=== PATIENT | female | born 1985 | race Caucasian/White ===

== ENCOUNTER 2016-04-20 16:35 | Emergency (ER) | payer OTHER ==
[2016-04-20 16:54] VITALS: BP 114/79
[2016-04-20] MEDS ORDERED: Tetan/Diph/Pertus SYR(Tdap)* 0.5 ML SYR(BOOSTRIX) use SYR IM ONE (17:04)
--- NOTE | 2016-04-20 17:04 | UC ---
Knee Pain HPI - HPI Summary HPI Summary: fell on side walk one hour prior to arrival pain and abrasions both knee--hurts to wb on right leg - History of Current Complaint Chief Complaint: UCLowerExtremity Stated Complaint: KNEES INJURY FROM FALL Time Seen by Provider: 04/20/16 16:55 Hx Obtained From: Patient Hx Last Menstrual Period: 2 WEEKS AGO ?: No Onset/Duration: Sudden Onset, Lasting Hours - 1, Still Present Severity Initially: Moderate Severity Currently: Moderate Location Of Injury: both knees R>L Pain Intensity: 6 Pain Scale Used: 0-10 Numeric Character: Aching, Stiffness Aggravating Factor(s): Movement, Weight Bearing Associated Signs And Symptoms: Positive: Bruising - abrasions Able to Bear Weight: Yes - hurts to WB on right leg - Allergies/Home Medications Allergies/Adverse Reactions: Allergies Allergy/AdvReac Type Severity Reaction Status Date / Time Amoxicillin Allergy Severe Hives Verified 04/20/16 16:54 PMH/Surg Hx/FS Hx/Imm Hx Previously Healthy: No Cardiovascular History Of: Denies: Pacemaker/ICD Neurological History Of: Reports: Migraine Psychological History Of: Reports: Depression - Surgical History Surgical History: Yes Surgery Procedure, Year, and Place: 2 c-sections - Family History Known Family History: Positive: Other - father from [place], Mother from [place] - Social History Occupation: Employed Full-time Lives: With Family Alcohol Use: None Alcohol Amount: RECOVERING ALCOHOLIC Substance Use Type: None Substance Use Comment - Amount & Last Used: RECOVERING DRUG ADDICT Smoking Status (MU): Current Every Day Smoker Type: Cigarettes Amount Used/How Often: 1 PACK Q2 WEEKS - Immunization History Most Recent Influenza Vaccination: 2012 Most Recent Tetanus Shot: >10 yrs Most Recent Pneumonia Vaccination: no Hx Tetanus, Diphtheria Vaccination: No - unsure of last Vaccination Up to Date: No Review of Systems Constitutional: Negative Skin: Bruising - both knees Eyes: Negative ENT: Negative Respiratory: Negative Cardiovascular: Negative Gastrointestinal: Negative Genitourinary: Negative Motor: Decreased ROM - right knee Neurovascular: Negative Musculoskeletal: Arthralgia - both knees Neurological: Negative Psychological: Negative All Other Systems Reviewed And Are Negative: Yes Physical Exam Triage Information Reviewed: Yes Appearance: Well-Appearing, Pain Distress - mild, Obese Vital Signs: Initial Vital Signs Temp 97.3 F 04/20/16 16:50 Pulse 86 04/20/16 16:50 Resp 18 04/20/16 16:50 BP 114/79 04/20/16 16:50 Pulse Ox 99 04/20/16 16:50 Vital Signs Reviewed: Yes Eye Exam: Normal ENT Exam: Normal ENT: Positive: Normal ENT inspection, Hearing grossly normal. Negative: Nasal congestion, Nasal drainage, Trismus, Muffled/hoarse voice Neck exam: Normal Neck: Positive: Supple, Nontender Respiratory Exam: Normal Respiratory: Positive: Chest non-tender, Lungs clear, Normal breath sounds, No respiratory distress, No accessory muscle use Cardiovascular Exam: Normal Cardiovascular: Positive: RRR, Pulses Normal, Brisk Capillary Refill Musculoskeletal Exam: Other Musculoskeletal: Positive: ROM Limited @ - right knee, Edema @ - both knees R>L Neurological Exam: Normal Neurological: Positive: Alert, Muscle Tone Normal Psychological Exam: Normal Skin: Positive: Other - abrasions on both knee R>L Diagnostics - Laboratory Diagnostic Studies Completed/Ordered: Joint space narrowing noacute fracture Knee Pain Course/Dx - Course Course Of Treatment: up date tetnus, ibuprofen jaz wrap wound care, rice, follow with pcp - Differential Dx/Diagnosis Differential Diagnosis/HQI/PQRI: Contusion, Internal Derangement Of Knee, Infection, Sprain Provider Diagnoses: Bilateral knee contusion and abrasion Discharge - Discharge Plan Condition: Stable Disposition: HOME Patient Education Materials: Ibuprofen (By mouth), Contusion in Adults (ED), Abrasion (ED), Knee Pain (ED), RICE Therapy (ED) Forms: *Work Release Referrals: Chacorta Betancourt MD [Medical Doctor] - 3 Days No Primary Care Phys,NOPCP [Primary Care Provider] -
[2016-04-20] MEDS ORDERED: Ibuprofen TAB* 600 MG PO ONE (17:05)
--- NOTE | 2016-04-20 17:42 | RAD ---
INDICATION: Bilateral knee pain COMPARISON: Left knee October 04, 2014 TECHNIQUE: AP, lateral, tunnel, and sunrise views of each knee were obtained. FINDINGS: There is minor, bilateral, medial joint space narrowing bilaterally. The bony structures, joint spaces, and soft tissues otherwise normal.. IMPRESSION: MINOR, BILATERAL, MEDIAL JOINT SPACE NARROWING.
== END 2016-04-20 17:57 | disposition home or self-care (01) ==
LOC: UCEAST 16:35
DX: S80.212A Abrasion, left knee, initial encounter (principal); S80.211A Abrasion, right knee, initial encounter; W18.30XA Fall on same level, unspecified, initial encounter; Y93.9 Activity, unspecified; Y92.480 Sidewalk as the place of occurrence of the external cause; Y99.9 Unspecified external cause status; F17.210 Nicotine dependence, cigarettes, uncomplicated
CPT/HCPCS: 90715; 99212; A9270-GY; G0463

== ENCOUNTER 2016-05-08 00:05 | Emergency (ER) | payer OTHER ==
[2016-05-08 01:06] VITALS: BP 117/83
--- NOTE | 2016-05-08 05:01 | ED ---
HPI Chest Pain - HPI Summary HPI Summary: Patient presents for evaluation of 2 days of L anterior, unclear onset, atraumatic chest wall pain. No allev factors. Aggrav by palpation. Denies shortness of breath or systemic symptoms. - History of Current Complaint Chief Complaint: EDChestPainROMI Time Seen by Provider: 05/08/16 00:55 Hx Obtained From: Patient Timing: Intermittent, Lasting Seconds Initial Severity: Mild Current Severity: Mild Pain Intensity: 8 - Allergy/Home Medications Allergies/Adverse Reactions: Allergies Allergy/AdvReac Type Severity Reaction Status Date / Time Amoxicillin Allergy Severe Hives Verified 04/20/16 16:54 PMH/Surg Hx/FS Hx/Imm Hx Previously Healthy: Yes Cardiovascular History: Denies: Hx Pacemaker/ICD Sensory History: Reports: Hx Contacts or Glasses Denies: Hx Hearing Aid Opthamlomology History: Reports: Hx Contacts or Glasses Neurological History: Reports: Hx Migraine Psychiatric History: Reports: Hx Depression Denies: Hx Panic Disorder - Surgical History Surgery Procedure, Year, and Place: 2 c-sections Hx Anesthesia Reactions: No Infectious Disease History: No Infectious Disease History: Denies: History Other Infectious Disease, Traveled Outside the [place] in Last 30 Days - Family History Known Family History: Positive: Other - father from [place], Mother from [place] - Social History Alcohol Use: None Alcohol Amount: RECOVERING ALCOHOLIC Substance Use Type: Reports: None Substance Use Comment - Amount & Last Used: RECOVERING DRUG ADDICT Hx Tobacco Use: Yes Smoking Status (MU): Current Every Day Smoker Type: Cigarettes Amount Used/How Often: 1 PACK Q2 WEEKS Review of Systems All Other Systems Reviewed And Are Negative: Yes Physical Exam Triage Information Reviewed: Yes Vital Signs On Initial Exam: Initial Vitals Temp Pulse Resp BP Pulse Ox 97.5 F 70 20 156/89 100 05/08/16 00:07 05/08/16 00:07 05/08/16 00:07 05/08/16 00:07 05/08/16 00:07 Vital Signs Reviewed: Yes Appearance: Positive: Well-Appearing, No Pain Distress, Well-Nourished Skin: Positive: Warm, Skin Color Reflects Adequate Perfusion, Dry Respiratory/Lung Sounds: Positive: Clear to Auscultation, Breath Sounds Present Cardiovascular: Positive: Normal, RRR, Pulses are Symmetrical in both Upper and Lower Extremities Abdomen Description: Positive: Nontender, No Organomegaly, Soft Musculoskeletal: Positive: Normal, Strength/ROM Intact Neurological: Positive: Normal, Sensory/Motor Intact, Alert, Oriented to Person Place, Time, CN Intact II-III Diagnostics - Vital Signs Vital Signs Temp Pulse Resp BP Pulse Ox 05/08/16 01:00 60 21 117/83 99 05/08/16 00:50 23 05/08/16 00:49 88/65 05/08/16 00:07 97.5 F 70 20 156/89 100 - Laboratory Lab Statement: Any lab studies that have been ordered have been reviewed, and results considered in the medical decision making process. Chest Pain Course/Dx - Chest Pain Differential Diagnosis/HQI/PQRI: ACS, Chest Wall, Pulmonary Embolism, Other: - Primary concern for MSk chest wall pain. EKG unremarkable. Prolonged duration. Low wells, PERC qualifier. - Diagnoses Provider Diagnoses: Chest wall pain Discharge - Discharge Plan Condition: Stable Disposition: HOME Patient Education Materials: Chest Pain (ED) Referrals: No Primary Care Phys,NOPCP [Primary Care Provider] - If Needed
--- NOTE | 2016-05-08 07:50 | RAD ---
INDICATION: RIGHT side chest pain for 3 hours. Shortness of breath. Former tobacco use. COMPARISON: January 13, 2016 TECHNIQUE: Dual energy PA and routine lateral views of the chest were obtained. REPORT: Clear lungs and pleural spaces. Negative for pneumothorax. The heart, pulmonary vasculature, and mediastinal contours are unremarkable. Unremarkable osseous structures and soft tissue contours. IMPRESSION: No evidence for acute intrathoracic disease.
== END 2016-05-08 01:45 | disposition home or self-care (01) ==
LOC: ED 00:05
DX: R07.89 Other chest pain (principal); F17.210 Nicotine dependence, cigarettes, uncomplicated; Z88.0 Allergy status to penicillin; Z82.49 Family history of ischemic heart disease and other diseases of the circulatory system
CPT/HCPCS: 71020; 93005; 99282

== ENCOUNTER 2016-05-14 21:37 | Emergency (ER) | payer OTHER ==
[2016-05-14 21:54] VITALS: BP 124/61
[2016-05-14] MEDS ORDERED: Diazepam SYRINGE* 5 MG/ML SYRINGE IV ONE (22:25)
[2016-05-14] MEDS ORDERED: Ketorolac INJ* 30 MG/ML 1 ML VIAL IV PUSH ONE (22:25)
[2016-05-14] MEDS ORDERED: NS 0.9% 1000 ML* 1,000 ML IV ONE (22:26)
[2016-05-15 00:04] LABS: Hematocrit 39 % (35-47); Hemoglobin 13.1 g/dl (12.0-16.0); Mean Corpuscular HGB Conc 33 g/dl (31-36); Mean Corpuscular Hemoglobin 28 pg (27-31); Mean Corpuscular Volume 85 fL (80-97); Mean Platelet Volume 9 um3 (7.4-10.4); Red Blood Count 4.66 10^6/ul (4.0-5.4); Red Cell Distribution Width 13 % (10.5-15); White Blood Count 7.2 10^3/ul (3.5-10.8)
[2016-05-15 00:24] LABS: BUN/Creatinine Ratio 19.7 (8-20); Calcium 9.2 mg/dL (8.6-10.3); EGFR African American 133.5 (>60); EGFR Non-African American 103.8 (>60)
[2016-05-15 00:32] LABS: Potassium 3.9 mmol/L (3.5-5.0)
--- NOTE | 2016-05-30 20:50 | ED ---
Jing Murcia Anna scribed for Clement Chisholm MD on 05/14/16 at 2216 . Headache - HPI Summary HPI Summary: Patient is a 30 y/o female BIBA to [facility] presenting with a frontal ONOFRE that began today. She reports that todays pain is worse than normal. The pain is exacerbated by light and sound. She usually sleeps off the migraine and sometimes takes Tylenol or Motrin. Today, she had just finished smoking and became lightheaded. Twenty minutes after she sat down, the ONOFRE began and worsened over time. She was able to work normally today. She reports that she is sleeping normally and has no unusual stress. She takes no medications regularly. LNMP was this week. She drinks one cup of coffee each day. Her history is significant for migraines with blurred vision. - History Of Current Complaint Stated Complaint: HEADACHE Time Seen by Provider: 05/14/16 21:51 Hx Obtained From: Patient - Allergies/Home Medications Allergies/Adverse Reactions: Allergies Allergy/AdvReac Type Severity Reaction Status Date / Time Amoxicillin Allergy Severe Hives Verified 04/20/16 16:54 PMH/Surg Hx/FS Hx/Imm Hx Cardiovascular History: Denies: Hx Pacemaker/ICD Sensory History: Reports: Hx Contacts or Glasses Opthamlomology History: Reports: Hx Contacts or Glasses Neurological History: Reports: Hx Migraine Psychiatric History: Reports: Hx Depression Denies: Hx Panic Disorder - Surgical History Surgery Procedure, Year, and Place: 2 c-sections Hx Anesthesia Reactions: No Infectious Disease History: No Infectious Disease History: Denies: History Other Infectious Disease, Traveled Outside the US in Last 30 Days - Family History Known Family History: Positive: Other - father from [place], Mother from [place] - Social History Alcohol Use: None Alcohol Amount: RECOVERING ALCOHOLIC Substance Use Type: Reports: None Substance Use Comment - Amount & Last Used: RECOVERING DRUG ADDICT Hx Tobacco Use: Yes Smoking Status (MU): Current Every Day Smoker Type: Cigarettes Amount Used/How Often: 1 PACK Q2 WEEKS Review of Systems Positive: Photophobia Negative: Abdominal Pain, Vomiting, Nausea Negative: dysuria, hematuria Negative: Myalgia, Edema Negative: Rash Neurological: Other - Lightheadedness Positive: Headache All Other Systems Reviewed And Are Negative: Yes Physical Exam - Summary Physical Exam Summary: Constitutional: Well-developed, Well-nourished, Alert. (-) Distressed Skin: Warm, Dry HENT: Eyes: Conjunctiva normal Neck: Musculoskeletal ROM normal neck. (-) JVD, (-) Stridor, (-) Tracheal deviation Cardio: Rhythm regular, ~~rate normal, Heart sounds normal; Intact distal pulses ; The pedal pulses are 2+ and symmetric. Radial pulses are 2+ and symmetric. (- ) Murmur Pulmonary/Chest wall: Effort normal. (-) Respiratory distress, (-) Wheezes, (-) Rales Abd: Soft. (-) Tenderness, ~(-) Distension, (-) Guarding, (-) Rebound Musculoskeletal: (-) Edema Lymph: (-) Cervical adenopathy Neuro: Alert, Oriented x3, Strength normal, Cranial nerves II-XII are grossly intact. (-) Dysmetria, (-) Nystagmus, (-) Ataxia by finger to nose testing, (-) Sensory deficit. Psych: Mood and affect Normal Triage Information Reviewed: Yes Vital Signs On Initial Exam: Initial Vitals Temp Pulse Resp BP Pulse Ox 96.4 F 84 12 124/61 95 05/14/16 21:49 05/14/16 21:49 05/14/16 21:49 05/14/16 21:49 05/14/16 21:49 Vital Signs Reviewed: Yes Diagnostics - Vital Signs Vital Signs Temp Pulse Resp BP Pulse Ox 05/14/16 21:49 96.4 F 84 12 124/61 95 - Laboratory Result Diagrams: 05/14/16 23:45 05/14/16 23:45 Lab Statement: Any lab studies that have been ordered have been reviewed, and results considered in the medical decision making process. Re-Evaluation - Re-Evaluation First Eval Re-Evaluation Time: 00:26 Change: Improved - Discussed results and plan of care with patient. Patient agrees with plan. Symptoms have resolved. Headache Course/Dx - Course Assessment/Plan: Patient is a 30 y/o female BIBA to [facility] presenting with a frontal ONOFRE that began today. She reports that todays pain is worse than normal. The pain is exacerbated by light and sound. She usually sleeps off the migraine and sometimes takes Tylenol or Motrin. Today, she had just finished smoking and became lightheaded. Twenty minutes after she sat down, the ONOFRE began and worsened over time. She was able to work normally today. She reports that she is sleeping normally and has no unusual stress. She takes no medications regularly. LNMP was this week. She drinks one cup of coffee each day. Her history is significant for migraines with blurred vision. Labs WNL. Pt treated with Toradol and Valium in the ED course. Symptoms have resolved. Pt will be discharged home and follow up with neurology. Patient was ordered a Medicaid cab for transport home. - Diagnoses Provider Diagnoses: Migraine Discharge - Discharge Plan Condition: Stable Disposition: HOME Prescriptions: Metoclopramide TAB* [Reglan TAB*] 10 mg PO Q8H PRN #15 tab PRN Reason: Headache Naproxen TAB* [Naprosyn TAB*] 500 mg PO Q8H PRN #30 tab PRN Reason: Pain - Moderate To Severe Patient Education Materials: Metoclopramide (By mouth), Naproxen (By mouth), Migraine Headache (ED) Referrals: Sabrina Altamirano MD [Medical Doctor] - Additional Instructions: Follow up with neurology within 48 hours. Return to the emergency department for changing or worsening symptoms. The documentation as recorded by the Jing fiore Anna accurately reflects the service I personally performed and the decisions made by , Clement Chisholm MD.
== END 2016-05-15 01:24 | disposition home or self-care (01) ==
LOC: ED 21:37
DX: G43.909 Migraine, unspecified, not intractable, without status migrainosus (principal); H53.149 Visual discomfort, unspecified; R51 Headache; Z87.891 Personal history of nicotine dependence
CPT/HCPCS: 36415; 80048; 85027; 96374; 99283; J1885; J3360

== ENCOUNTER 2016-08-12 20:54 | Emergency (ER) | payer OTHER ==
[2016-08-12 21:06] VITALS: BP 138/72
[2016-08-12] MEDS ORDERED: Benzonatate CAP* 100 MG PO ONE (21:21)
[2016-08-12] MEDS ORDERED: Azithromycin TAB* 250 MG PO ONE (21:21)
--- NOTE | 2016-08-12 21:29 | UC ---
Throat Pain/Nasal Teddy HPI - HPI Summary HPI Summary: ONE WEEK OF COUGH SINUS CONGESTION, EAR PRESSURE. NO FEVER. BEGAN AFTER TRYING NICORETTE GUM; RECENTLY SWITCHED INSTEAD TO CHANTIX - History of Current Complaint Chief Complaint: UCRespiratory Stated Complaint: COUGH Time Seen by Provider: 08/12/16 21:01 Hx Obtained From: Patient, Other: - ROOMATE Hx Last Menstrual Period: 08/05/16 Onset/Duration: Gradual Onset, Lasting Weeks, Still Present Severity: Moderate Cough: Nonproductive Associated Signs & Symptoms: Positive: Wheezing, Hoarseness, Sinus Discomfort, Nasal Discharge. Negative: Fever - Epiglottits Risk Factors Epiglottis Risk Factors: Negative - Allergies/Home Medications Allergies/Adverse Reactions: Allergies Allergy/AdvReac Type Severity Reaction Status Date / Time Amoxicillin Allergy Severe Hives Verified 08/12/16 21:06 Home Medications: Home Medications Varenicline Tartrate [Chantix Starting M... 0.5 mg X 11 & 1 mg X 42] 1 tab PO DAILY 08/12/16 [History Confirmed 08/12/16] PMH/Surg Hx/FS Hx/Imm Hx Previously Healthy: Yes Endocrine History Of: Denies: Diabetes, Thyroid Disease Cardiovascular History Of: Denies: Cardiac Disorders, Hypertension, Pacemaker/ICD Respiratory History Of: Denies: COPD, Asthma GI/ History Of: Denies: Ulcer Neurological History Of: Reports: Migraine Psychological History Of: Reports: Depression - Surgical History Surgical History: Yes Surgery Procedure, Year, and Place: 2 c-sections - Family History Known Family History: Positive: Other - father from [place], Mother from [place] Negative: Respiratory Disease - Social History Occupation: Disabled Lives: With Family Alcohol Use: None Alcohol Amount: RECOVERING ALCOHOLIC Substance Use Type: None Substance Use Comment - Amount & Last Used: RECOVERING DRUG ADDICT Smoking Status (MU): Current Every Day Smoker Type: Cigarettes Amount Used/How Often: 1 PACK Q2 WEEKS Cessation Counseling: Patient Advised to Stop - Immunization History Most Recent Influenza Vaccination: 2012 Most Recent Tetanus Shot: >10 yrs Most Recent Pneumonia Vaccination: no Hx Tetanus, Diphtheria Vaccination: No - unsure of last Vaccination Up to Date: No Review of Systems Constitutional: Negative Skin: Negative Eyes: Negative ENT: Ear Ache, Nasal Discharge Respiratory: Cough Cardiovascular: Negative Gastrointestinal: Negative Genitourinary: Negative Motor: Negative Neurovascular: Negative Musculoskeletal: Negative Neurological: Negative Psychological: Negative All Other Systems Reviewed And Are Negative: Yes Physical Exam Triage Information Reviewed: Yes Appearance: Well-Appearing, No Pain Distress, Well-Nourished Vital Signs: Initial Vital Signs Temp 98.0 F 08/12/16 21:03 Pulse 79 08/12/16 21:03 Resp 16 08/12/16 21:03 BP 138/72 08/12/16 21:03 Pulse Ox 100 08/12/16 21:03 Vital Signs Reviewed: Yes Eye Exam: Normal ENT: Positive: Hearing grossly normal, Pharynx normal, TM bulging, TM dull Dental Exam: Normal Neck exam: Normal Neck: Positive: Supple, Nontender, No Lymphadenopathy Respiratory Exam: Other - COUGH Respiratory: Positive: Chest non-tender, Lungs clear, Normal breath sounds, No respiratory distress, No accessory muscle use Cardiovascular Exam: Normal Cardiovascular: Positive: RRR, No Murmur, Pulses Normal, Brisk Capillary Refill Abdominal Exam: Normal Abdomen Description: Positive: Nontender, No Organomegaly Musculoskeletal Exam: Normal Musculoskeletal: Positive: Strength Intact, ROM Intact Neurological Exam: Normal Psychological Exam: Normal Skin Exam: Normal Throat Pain/Nasal Course/Dx - Differential Dx/Diagnosis Differential Diagnosis/HQI/PQRI: Pharyngitis, Sinusitis, Tonsillitis, URI Provider Diagnoses: SINUSITIS; UPPER RESPIRATORY INFECTION Discharge - Discharge Plan Condition: Stable Disposition: HOME Prescriptions: Azithromycin TAB* [Zithromax TAB (Z-LISA) 250 mg #6 tabs] 250 mg PO DAILY #4 tab Benzonatate CAP* [Tessalon 100 MG CAP*] 100 mg PO TID #15 cap Patient Education Materials: Sinusitis (ED), Upper Respiratory Infection (ED) Referrals: [facility] [Outside] No Primary Care Phys,NOPCP [Primary Care Provider] -
== END 2016-08-12 21:32 | disposition home or self-care (01) ==
LOC: UCEAST 20:54
DX: J32.9 Chronic sinusitis, unspecified (principal); J06.9 Acute upper respiratory infection, unspecified; G43.909 Migraine, unspecified, not intractable, without status migrainosus; F32.9 Major depressive disorder, single episode, unspecified; Z88.0 Allergy status to penicillin; F17.210 Nicotine dependence, cigarettes, uncomplicated
CPT/HCPCS: 99212; A9270-GY; G0463

== ENCOUNTER 2016-10-12 19:29 | Emergency (ER) | payer OTHER ==
[2016-10-12 19:34] VITALS: BP 130/60
--- NOTE | 2016-10-12 20:43 | ED ---
GI/ HPI - HPI Summary HPI Summary: 30F presents for testing for STD. She states she heard from someone that he boyfriend had an STD so she came for treatment. during the course of the ED while she was waiting for give a urine sample. the patient spoke with bf and learned that he does not have a STD. She denies any vaginal discharge, dysuria , hematuria, flank pain. She has history of kidney issues and does not urinate often. - History of Current Complaint Chief Complaint: EDGeneral Time Seen by Provider: 10/12/16 19:54 Stated Complaint: TESTS REQUESTED Pain Intensity: 0 - Allergy/Home Medications Allergies/Adverse Reactions: Allergies Allergy/AdvReac Type Severity Reaction Status Date / Time Amoxicillin Allergy Severe Hives Verified 08/12/16 21:06 PMH/Surg Hx/FS Hx/Imm Hx Endocrine/Hematology History: Denies: Hx Diabetes, Hx Thyroid Disease Cardiovascular History: Denies: Hx Hypertension, Hx Pacemaker/ICD Respiratory History: Denies: Hx Asthma, Hx Chronic Obstructive Pulmonary Disease (COPD) GI History: Denies: Hx Ulcer Sensory History: Reports: Hx Contacts or Glasses Denies: Hx Hearing Aid Opthamlomology History: Reports: Hx Contacts or Glasses Neurological History: Reports: Hx Migraine Psychiatric History: Reports: Hx Depression Denies: Hx Panic Disorder - Surgical History Surgery Procedure, Year, and Place: 2 c-sections Hx Anesthesia Reactions: No Infectious Disease History: No Infectious Disease History: Denies: Hx Clostridium Difficile, Hx Hepatitis, Hx Human Immunodeficiency Virus (HIV), Hx of Known/Suspected MRSA, Hx Shingles, History Other Infectious Disease, Traveled Outside the [place] in Last 30 Days - Family History Known Family History: Positive: Cardiac Disease, Other - father from [place], Mother from [place] Negative: Respiratory Disease - Social History Alcohol Use: Rare Alcohol Amount: RECOVERING ALCOHOLIC, relapsed last night Substance Use Type: Reports: None Substance Use Comment - Amount & Last Used: RECOVERING DRUG ADDICT Hx Tobacco Use: Yes Smoking Status (MU): Light Every Day Tobacco Smoker Type: Cigarettes Amount Used/How Often: 1 PACK Q2 WEEKS Review of Systems Negative: Fever Negative: Chest Pain Negative: Shortness Of Breath Positive: Other - potenital STD exposure. Negative: Abdominal Pain All Other Systems Reviewed And Are Negative: Yes Physical Exam Triage Information Reviewed: Yes Vital Signs On Initial Exam: Initial Vitals Temp Pulse Resp BP Pulse Ox 98.3 F 81 16 130/60 99 10/12/16 19:33 10/12/16 19:33 10/12/16 19:33 10/12/16 19:33 10/12/16 19:33 Vital Signs Reviewed: Yes Appearance: Positive: Well-Appearing Skin: Positive: Warm, Dry Head/Face: Positive: Normal Head/Face Inspection Eyes: Positive: Normal, Conjunctiva Clear Respiratory/Lung Sounds: Positive: Clear to Auscultation, Breath Sounds Present Cardiovascular: Positive: Normal, RRR Abdomen Description: Positive: Nontender, Soft Bowel Sounds: Positive: Present Diagnostics - Vital Signs Vital Signs Temp Pulse Resp BP Pulse Ox 10/12/16 19:33 98.3 F 81 16 130/60 99 - Laboratory Lab Statement: Any lab studies that have been ordered have been reviewed, and results considered in the medical decision making process. GIGU Course/Dx - Course Course Of Treatment: 30F presents for testing for STD. She states she heard from someone that he boyfriend had an STD so she came for treatment. during the course of the ED while she was waiting for give a urine sample. the patient spoke with bf and learned that he does not have a STD. She denies any vaginal discharge, dysuria, hematuria, flank pain. She has history of kidney issues and does not urinate often. patient decided that she does not want to do any cultures anymore. said if anything changes patient should come back. patient understands and agrees with plan - Diagnoses Differential Diagnoses - Female: STD, Urinary Tract Infection, Vaginitis Provider Diagnoses: Potential exposure to STD Discharge - Discharge Plan Condition: Good Disposition: HOME Referrals: Lester Escamilla MD [Primary Care Provider] - Additional Instructions: Follow up with primary Return to ED if develop any vaginal discharge or any new or worsening symptoms
== END 2016-10-12 21:25 | disposition home or self-care (01) ==
LOC: ED 19:29
DX: Z20.2 Contact with and (suspected) exposure to infections with a predominantly sexual mode of transmission (principal); F17.210 Nicotine dependence, cigarettes, uncomplicated
CPT/HCPCS: 99281

== ENCOUNTER 2016-12-17 09:32 | Emergency (ER) | payer OTHER ==
[2016-12-17 10:40] VITALS: BP 118/66
--- NOTE | 2016-12-17 11:24 | UC ---
Respiratory Complaint HPI - HPI Summary HPI Summary: Couple of days of cough and cold symptoms and left ear pain no fevers - History of Current Complaint Chief Complaint: UCRespiratory Stated Complaint: URI Time Seen by Provider: 12/17/16 11:20 Hx Obtained From: Patient Hx Last Menstrual Period: 12/11/16 ?: No Onset/Duration: Gradual Onset, Lasting Days Timing: Constant Severity Initially: Mild Severity Currently: Moderate Pain Intensity: 5 Pain Scale Used: 0-10 Numeric Character: Cough: Productive Aggravating Factors: Nothing Alleviating Factors: Nothing Associated Signs And Symptoms: Positive: Chills, Pleuritic Chest Pain, URI, Nasal Congestion, Hoarseness, Sinus Discomfort - Allergies/Home Medications Allergies/Adverse Reactions: Allergies Allergy/AdvReac Type Severity Reaction Status Date / Time Amoxicillin Allergy Severe Hives Verified 12/17/16 10:29 PMH/Surg Hx/FS Hx/Imm Hx Previously Healthy: No - relapse substance abuse disorder - Surgical History Surgical History: Yes Surgery Procedure, Year, and Place: 2 c-sections - Family History Known Family History: Positive: Cardiac Disease, Other - father from [place], Mother from [place] Negative: Respiratory Disease - Social History Occupation: Employed Full-time Lives: With Family Alcohol Use: Rare Alcohol Amount: 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, slipped last night Substance Use Type: None Substance Use Comment - Amount & Last Used: recovering alcohol abuse disorder Smoking Status (MU): Light Every Day Tobacco Smoker Type: Cigarettes Amount Used/How Often: 1 PACK Q1 WEEKS - Immunization History Most Recent Influenza Vaccination: 2012 Most Recent Tetanus Shot: >10 yrs Most Recent Pneumonia Vaccination: no Hx Tetanus, Diphtheria Vaccination: No - unsure of last Vaccination Up to Date: No Review of Systems Constitutional: Chills, Fatigue Skin: Negative Eyes: Negative ENT: Ear Ache, Nasal Discharge Respiratory: Cough Cardiovascular: Negative Gastrointestinal: Negative Genitourinary: Negative Motor: Negative Neurovascular: Negative Musculoskeletal: Negative Neurological: Negative All Other Systems Reviewed And Are Negative: Yes Physical Exam Triage Information Reviewed: Yes Appearance: Well-Appearing, No Pain Distress, Obese Vital Signs: Initial Vital Signs Temp 97.1 F 12/17/16 10:30 Pulse 61 12/17/16 10:30 Resp 16 12/17/16 10:30 BP 118/66 12/17/16 10:30 Pulse Ox 100 12/17/16 10:30 Vital Signs Reviewed: Yes Eye Exam: Normal Eyes: Positive: Conjunctiva Clear ENT Exam: Normal ENT: Positive: Normal ENT inspection, Hearing grossly normal, Nasal drainage, TMs normal. Negative: Nasal congestion, Tonsillar swelling, Tonsillar exudate, Trismus, Muffled/hoarse voice Dental Exam: Normal Dental: Positive: Percussion Tenderness @ Neck exam: Normal Neck: Positive: Supple, Nontender Respiratory Exam: Normal Respiratory: Positive: Chest non-tender, Lungs clear, Normal breath sounds, No respiratory distress, No accessory muscle use Cardiovascular Exam: Normal Cardiovascular: Positive: RRR, No Murmur, Pulses Normal, Brisk Capillary Refill Abdominal Exam: Normal Abdomen Description: Positive: Nontender Bowel Sounds: Positive: Present Musculoskeletal Exam: Normal Musculoskeletal: Positive: Strength Intact, ROM Intact Neurological: Positive: Alert Psychological Exam: Normal Skin Exam: Normal UC Diagnostic Evaluation - Laboratory O2 Sat by Pulse Oximetry: 100 Respiratory Course/Dx - Course Course Of Treatment: albuterol,flonase, zithroamx - Differential Dx/Diagnosis Differential Diagnosis/HQI/PQRI: Asthma, Bronchitis, Laryngitis, Lower Resp Infection, Sinusitis, Tuberculosis Provider Diagnoses: Acute bronchitis and sinus inection, nicotine dependent Discharge - Discharge Plan Condition: Stable Disposition: HOME Prescriptions: Albuterol HFA INHALER* [Ventolin HFA Inhaler*] 2 puff INH Q4H PRN #1 mdi PRN Reason: cough/chest congestion Azithromycin TAB* [Zithromax TAB (Z-LISA) 250 mg #6 tabs] 2 tab PO .TODAY, THEN 1 DAILY #1 lisa Fluticasone NASAL SPRAY 50MCG* [Flonase NASAL SPRAY 50MCG*] 2 spray BOTH NARES DAILY #1 btl Patient Education Materials: How to Stop Smoking (ED), Otitis Externa (ED), Acute Cough (ED) Forms: *Work Release Referrals: Lester Escamilla MD [Primary Care Provider] - If Needed
== END 2016-12-17 11:39 | disposition home or self-care (01) ==
LOC: UCEAST 09:32
DX: J20.9 Acute bronchitis, unspecified (principal); J32.9 Chronic sinusitis, unspecified; F17.210 Nicotine dependence, cigarettes, uncomplicated
CPT/HCPCS: 99212; G0463

== ENCOUNTER 2017-01-13 18:32 | Emergency (ER) | payer OTHER ==
[2017-01-13] MEDS ORDERED: NS 0.9% 1000 ML* 1,000 ML IV ONE (19:39)
[2017-01-13] MEDS ORDERED: Aspirin Low Dose CHEW TAB* 81 MG PO ONE (19:39)
[2017-01-13] MEDS ORDERED: ALPRAZolam TAB* 0.25 MG PO ONE (19:42)
[2017-01-13 20:33] LABS: Hematocrit 41 % (35-47); Hemoglobin 14.1 g/dl (12.0-16.0); Mean Corpuscular HGB Conc 34 g/dl (31-36); Mean Corpuscular Hemoglobin 29 pg (27-31); Mean Corpuscular Volume 86 fL (80-97); Mean Platelet Volume 9 um3 (7.4-10.4); Red Blood Count 4.82 10^6/ul (4.0-5.4); Red Cell Distribution Width 14 % (10.5-15); White Blood Count 6.4 10^3/ul (3.5-10.8)
[2017-01-13 20:48] LABS: ALT 14 U/L (7-52); AST 12 U/L (13-39); Alkaline Phosphatase 50 U/L (34-104); Anion Gap 4 mmol/L (2-11); BUN/Creatinine Ratio 18.8 (8-20); Blood Urea Nitrogen 13 mg/dL (6-24); CO2 Carbon Dioxide 29 mmol/L (22-32); Calcium 9.4 mg/dL (8.6-10.3); Chloride 104 mmol/L (101-111); Globulin 2.8 g/dL (2-4); Glucose 83 mg/dL (70-100); Magnesium 2.1 mg/dL (1.9-2.7); Potassium 3.8 mmol/L (3.5-5.0); Sodium 137 mmol/L (133-145); Total Protein 6.8 g/dL (6.4-8.9)
--- NOTE | 2017-01-13 21:05 | RAD ---
Indication: Bronchitis. 2 views of the chest including dual energy PA views demonstrates no mediastinal shift. Heart is of normal size and configuration. Lung jara are clear. IMPRESSION: No active cardiopulmonary disease is noted.
[2017-01-13 21:21] LABS: T4 9.04 mcg/mL (6.09-12.23)
[2017-01-13 21:25] LABS: TSH (Thyroid Stimulating Horm) 2.62 mcIU/mL (0.34-5.60)
--- NOTE | 2017-01-13 22:44 | ED ---
Dion Murcia Thomas, scribed for Nhan Stephens MD on 01/13/17 at 1911 . HPI Chest Pain - HPI Summary HPI Summary: The pt is a 31 y/o F BIBA c/o CP that suddenly began today at 18:00 when she was talking to her neighbor. The pain is located in her central chest. The pain is rated 8/10. The pain is aggravated by deep breaths and positional change. The CP is reproducible. It is alleviated by nothing. The patient has treated the pain with nothing STNA. She recalls a prior episode of CP associated with an anxiety attack. Pt additionally c/o a migraine headache. Her CP began before her migraine. Pt denies SOB, cough, and leg swelling. - History of Current Complaint Chief Complaint: EDChestPainROMI Hx Obtained From: Patient Hx Last Menstrual Period: 12/11/16 Onset/Duration: Started Minutes Ago - onset of pain today at 18:00, Still Present Timing: Constant Pain Intensity: 8 Pain Scale Used: 0-10 Numeric Chest Pain Location: Discrete at: - central chest Chest Pain Radiates: No Aggravating Factor(s): Position, Deep Breaths, Other: - Pain is reproducible Alleviating Factor(s): Nothing Associated Signs and Symptoms: Positive: Chest Pain, Headaches - migraine. Negative: Shortness of Breath, Cough, Other: - NEGATIVE: leg swelling - Allergy/Home Medications Allergies/Adverse Reactions: Allergies Allergy/AdvReac Type Severity Reaction Status Date / Time Amoxicillin Allergy Severe Hives Verified 12/17/16 10:29 PMH/Surg Hx/FS Hx/Imm Hx Previously Healthy: No Endocrine/Hematology History: Denies: Hx Diabetes, Hx Thyroid Disease Cardiovascular History: Denies: Hx Pacemaker/ICD Respiratory History: Denies: Hx Asthma, Hx Chronic Obstructive Pulmonary Disease (COPD) GI History: Denies: Hx Ulcer Sensory History: Reports: Hx Contacts or Glasses Denies: Hx Hearing Aid Opthamlomology History: Reports: Hx Contacts or Glasses Neurological History: Reports: Hx Migraine Psychiatric History: Reports: Hx Anxiety, Hx Depression Denies: Hx Panic Disorder - Surgical History Surgery Procedure, Year, and Place: 2 c-sections Hx Anesthesia Reactions: No Infectious Disease History: No Infectious Disease History: Denies: Hx Clostridium Difficile, Hx Hepatitis, Hx Human Immunodeficiency Virus (HIV), Hx of Known/Suspected MRSA, Hx Shingles, History Other Infectious Disease, Traveled Outside the [place] in Last 30 Days - Family History Known Family History: Positive: Cardiac Disease, Hypertension, Diabetes, Other - father from [place], Mother from [place] Negative: Respiratory Disease - Social History Alcohol Use: None Alcohol Amount: denies Hx Substance Use: No Substance Use Type: Reports: None Substance Use Comment - Amount & Last Used: recovering alcohol abuse disorder Hx Tobacco Use: Yes Smoking Status (MU): Light Every Day Tobacco Smoker Type: Cigarettes Amount Used/How Often: 1 PACK Q1 WEEKS Review of Systems Positive: Chest Pain Negative: Shortness Of Breath, Cough Negative: Other - NEGATIVE: leg swelling Positive: Headache - migraine All Other Systems Reviewed And Are Negative: Yes Physical Exam - Summary Physical Exam Summary: Appearance: Well-appearing, Well-nourished Skin: Warm Eyes: Normal ENT: Normal Neck: Supple, nontender Respiratory: Clear to auscultation Cardiovascular: Normal Abdomen: Soft, nontender Bowel: Present Musculoskeletal: Normal, Strength/ROM Intact Neurological: Normal, Alert, Oriented to Person Psychiatric: Normal Triage Information Reviewed: Yes Vital Signs On Initial Exam: Initial Vitals Temp Pulse Resp BP Pulse Ox 98.2 F 65 14 123/67 100 01/13/17 18:56 01/13/17 18:56 01/13/17 18:56 01/13/17 18:56 01/13/17 18:56 Vital Signs Reviewed: Yes - Chito Coma Scale Coma Scale Total: 15 Diagnostics - Vital Signs Vital Signs Temp Pulse Resp BP Pulse Ox 01/13/17 18:56 98.2 F 65 14 123/67 100 - Laboratory Lab Results: Lab Results 01/13/17 01/13/17 Range/Units 20:23 20:23 WBC 6.4 (3.5-10.8) 10^3/ul RBC 4.82 (4.0-5.4) 10^6/ul Hgb 14.1 (12.0-16.0) g/dl Hct 41 (35-47) % MCV 86 (80-97) fL MCH 29 (27-31) pg MCHC 34 (31-36) g/dl RDW 14 (10.5-15) % Plt Count 185 (150-450) 10^3/ul MPV 9 (7.4-10.4) um3 Neut % (Auto) 54.6 (38-83) % Lymph % (Auto) 35.0 (25-47) % Holt % (Auto) 6.6 (1-9) % Eos % (Auto) 2.6 (0-6) % Baso % (Auto) 1.2 (0-2) % Absolute Neuts (auto) 3.5 (1.5-7.7) 10^3/ul Absolute Lymphs (auto) 2.2 (1.0-4.8) 10^3/ul Absolute Monos (auto) 0.4 (0-0.8) 10^3/ul Absolute Eos (auto) 0.2 (0-0.6) 10^3/ul Absolute Basos (auto) 0.1 (0-0.2) 10^3/ul Absolute Nucleated RBC 0 10^3/ul Nucleated RBC % 0 Sodium 137 (133-145) mmol/L Potassium 3.8 (3.5-5.0) mmol/L Chloride 104 (101-111) mmol/L Carbon Dioxide 29 (22-32) mmol/L Anion Gap 4 (2-11) mmol/L BUN 13 (6-24) mg/dL Creatinine 0.69 (0.51-0.95) mg/dL Est GFR ( Amer) 126.0 (>60) Est GFR (Non-Af Amer) 98.0 (>60) BUN/Creatinine Ratio 18.8 (8-20) Glucose 83 (70-100) mg/dL Calcium 9.4 (8.6-10.3) mg/dL Magnesium 2.1 (1.9-2.7) mg/dL Total Bilirubin 0.70 (0.2-1.0) mg/dL AST 12 L (13-39) U/L ALT 14 (7-52) U/L Alkaline Phosphatase 50 (34-104) U/L Troponin I 0.00 (<0.04) ng/mL Total Protein 6.8 (6.4-8.9) g/dL Albumin 4.0 (3.2-5.2) g/dL Globulin 2.8 (2-4) g/dL Albumin/Globulin Ratio 1.4 (1-3) TSH 2.62 (0.34-5.60) mcIU/mL Thyroxine (T4) 9.04 (6.09-12.23) mcg/mL Beta HCG, Quant < 0.60 mIU/mL Result Diagrams: 01/13/17 20:23 01/13/17 20:23 Lab Statement: Any lab studies that have been ordered have been reviewed, and results considered in the medical decision making process. - Radiology CXR Xray Interpretation: No Acute Changes - No active cardiopulmonary disease. ED physician has reviewed this report and agrees. Radiology Interpretation Completed By: Radiologist - EKG 19:58 Cardiac Rate: NL - 62 BPM EKG Rhythm: Sinus Rhythm EKG Interpretation: No ectopy. No acute ischemic changes. Re-Evaluation - Re-Evaluation First Eval Re-Evaluation Time: 23:01 Change: Improved Comment: Her symptoms have improved. Chest Pain Course/Dx - Course Course Of Treatment: pt feels better after meds, instructed to fu with pmd, agrees to and understnads dc incsturcoints - Diagnoses Provider Diagnoses: Chest pain Discharge - Discharge Plan Condition: Improved Disposition: HOME Referrals: Lester Escamilla MD [Primary Care Provider] - Additional Instructions: PLEASE MAKE AN APPOINTMENT FIRST THING IN THE MORNING TO BE SEEN BY YOUR PRIMARY CARE DOCTOR WTIHIN 3-4 DAYS PLEASE RETURN IMMDIATELY TO THE EMERGENCY ROOM IF YOU HAVE ANY WORSENING OR CONCERNING SYMPTOMS The documentation as recorded by the Dion fiore Thomas accurately reflects the service I personally performed and the decisions made by me, Nhan Stephens MD.
[2017-01-13 23:15] VITALS: BP 119/78
== END 2017-01-13 23:15 | disposition home or self-care (01) ==
LOC: ED 18:32
DX: R07.9 Chest pain, unspecified (principal); F17.210 Nicotine dependence, cigarettes, uncomplicated; F41.9 Anxiety disorder, unspecified; F32.9 Major depressive disorder, single episode, unspecified
CPT/HCPCS: 36415; 71020; 80053; 83735; 84436; 84443; 84484; 84702; 85025; 93005; 96360; 99284; A9270-GY

== ENCOUNTER 2017-03-28 17:36 | Emergency (ER) | payer OTHER ==
[2017-03-28] MEDS ORDERED: HYDROcodone/ACETAMIN 5-325 MG* 1 TAB PO ONE (20:27)
--- NOTE | 2017-03-28 22:05 | RAD ---
indication: Head and neck pain after a fall. COMPARISON: CT of the brain June 14, [address] scan of the brain and c-spine was performed without intravenous contrast enhancement. Contiguous axial sections were obtained from the lung apices through the vertex. BRAIN: The ventricles, cisterns and sulci are within normal limits. No significant focal abnormality or mass effect is seen. The jaimes-white differentiation is adequately maintained. There is no evidence for intracranial hemorrhage. No significant bony abnormality is present. Overlying the posterior musculature at the level of the occiput there are subcentimeter subcutaneous nodules (axial image 10 and 11) unchanged from the prior CT of the brain. The mastoid air cells are appropriately aerated. The visualized paranasal sinuses are clear. 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 There is nonspecific straightening of the normal cervical lordosis similar to the prior CT of the cervical spine. The vertebral bodies and facet joints are otherwise appropriately aligned. Mild degenerative changes include loss of intervertebral disc height at C3/C4 and C4/C5. There is no hyperdense material in the cervical canal to indicate hemorrhage. The visualized musculature and soft tissues are normal. There is no gross lymphadenopathy visualized. The visualized portion of the lung apices are clear. IMPRESSION: 1. No calvarial fracture or acute intracranial hemorrhage. 2. Chronic findings of the cervical spine as described above without definite acute fracture or dislocation.
--- NOTE | 2017-03-28 22:31 | RAD ---
INDICATION: Coccygeal pain after a fall COMPARISON: Partial visualization of the lumbar spine dated November 07, 2013 TECHNIQUE: 5 views of the lumbar spine were obtained. FINDINGS: The vertebra are in normal alignment. No fracture is seen. Disc spaces appear maintained. IMPRESSION: No evidence of fracture or subluxation.
[2017-03-28] MEDS ORDERED: Ketorolac INJ* 60 MG/2 ML VIAL IM ONE (22:46)
[2017-03-29 00:34] VITALS: BP 105/71
--- NOTE | 2017-04-01 11:12 | ED ---
Charu Murcia Gabriel, scribed for Clement Chisholm MD on 03/28/17 at 1941 . Adult Trauma - HPI Summary HPI Summary: This patient is a 31 year old F presenting to [facility] s/p fall that occurred at 1800. Patient states she fell down 10 stairs after slipping on black ice. She reports hitting her tailbone and injuring her head. The patient rates the pain 8 /10 in severity. Symptoms aggravated by movement. Patient reports tailbone pain , lower back pain, ONOFRE, and neck pain. Patient denies LOC, dizziness, light headedness, and rib pain. - History of Current Complaint Chief Complaint: EDBackInjuryPain Stated Complaint: FALL Time Seen by Provider: 03/28/17 19:38 Hx Obtained From: Patient Hx Last Menstrual Period: 12/11/16 Mechanism of Injury: Fall Ambulatory at the Scene: Yes Loss of Consciousness: no loss of consciousness Onset/Duration: Still Present Onset of Pain: Immediate Onset Severity: Moderate Current Severity: Moderate Pain Intensity: 8 Pain Scale Used: 0-10 Numeric Location: Head, Neck, Back, Other - tailbone Aggravating Factor(s): Movement Associated Signs & Symptoms: Positive: Negative - LOC, dizziness, light headedness, rib pain, Other: - tailbone pain, lower back pain, ONOFRE, and neck pain. - Allergy/Home Medications Allergies/Adverse Reactions: Allergies Allergy/AdvReac Type Severity Reaction Status Date / Time Amoxicillin Allergy Severe Hives Verified 12/17/16 10:29 PMH/Surg Hx/FS Hx/Imm Hx Endocrine/Hematology History: Denies: Hx Diabetes, Hx Thyroid Disease Cardiovascular History: Denies: Hx Hypertension, Hx Pacemaker/ICD Respiratory History: Denies: Hx Asthma, Hx Chronic Obstructive Pulmonary Disease (COPD) GI History: Denies: Hx Ulcer History: Reports: Hx Kidney Stones Sensory History: Reports: Hx Contacts or Glasses Denies: Hx Hearing Aid Opthamlomology History: Reports: Hx Contacts or Glasses Neurological History: Reports: Hx Migraine Psychiatric History: Reports: Hx Anxiety, Hx Depression Denies: Hx Panic Disorder - Surgical History Surgery Procedure, Year, and Place: 2 c-sections Hx Anesthesia Reactions: No Infectious Disease History: No Infectious Disease History: Denies: Hx Clostridium Difficile, Hx Hepatitis, Hx Human Immunodeficiency Virus (HIV), Hx of Known/Suspected MRSA, Hx Shingles, History Other Infectious Disease, Traveled Outside the [place] in Last 30 Days - Family History Known Family History: Positive: Cardiac Disease, Hypertension, Diabetes, Other - father from [place], Mother from [place] Negative: Respiratory Disease - Social History Lives: Alone Alcohol Use: None Alcohol Amount: denies Hx Substance Use: No Substance Use Type: Reports: None Substance Use Comment - Amount & Last Used: recovering alcohol abuse disorder Hx Tobacco Use: Yes Smoking Status (MU): Light Every Day Tobacco Smoker Type: Cigarettes Amount Used/How Often: 1 PACK Q1 WEEKS Review of Systems Negative: Fever, Chills Negative: Erythema Negative: Sore Throat Negative: Chest Pain Negative: Shortness Of Breath, Cough Negative: Abdominal Pain, Vomiting, Nausea Negative: dysuria, hematuria Musculoskeletal: Negative - rib pain Positive: Myalgia, Other - tailbone pain, lower back pain, and neck pain . Negative: Edema Negative: Rash Neurological: Negative - LOC, dizziness, and light headedness Positive: Headache All Other Systems Reviewed And Are Negative: Yes Physical Exam - Summary Physical Exam Summary: Constitutional: Well-developed, Well-nourished, Alert. (-) Distressed Skin: Warm, Dry, No ecchymosis HENT: Normocephalic; Atraumatic Eyes: Conjunctiva normal Neck: Musculoskeletal ROM normal neck. (-) JVD, (-) Stridor, (-) Tracheal deviation Cardio: Rhythm regular, rate normal, Heart sounds normal; Intact distal pulses; The pedal pulses are 2+ and symmetric. Radial pulses are 2+ and symmetric. (-) Murmur Pulmonary/Chest wall: Effort normal. (-) Respiratory distress, (-) Wheezes, (-) Rales Abd: Soft, (-) Tenderness, (-) Distension, (-) Guarding, (-) Rebound Musculoskeletal: (-) Edema Tender over C4, occipital scalp, and from L2 down to the coccyx Lymph: (-) Cervical adenopathy Neuro: Alert, Oriented x3 Psych: Mood and affect Normal Triage Information Reviewed: Yes Vital Signs On Initial Exam: Initial Vitals Temp Pulse Resp BP Pulse Ox 98.1 F 79 18 127/66 98 03/28/17 17:55 03/28/17 17:55 03/28/17 17:55 03/28/17 17:55 03/28/17 17:55 Vital Signs Reviewed: Yes - Chito Coma Scale Coma Scale Total: 15 Diagnostics - Vital Signs Vital Signs Temp Pulse Resp BP Pulse Ox 03/28/17 19:02 69 93 03/28/17 19:00 119/59 03/28/17 17:55 98.1 F 79 18 127/66 98 - Laboratory Lab Statement: Any lab studies that have been ordered have been reviewed, and results considered in the medical decision making process. - Radiology lumbar xray Radiology Interpretation Completed By: Radiologist - No evidence of fracture or subluxation. ED physician has reviewed this report. - CT Brain CT CT Interpretation Completed By: Radiologist - 1. No calvarial fracture or acute intracranial hemorrhage. 2. Chronic findings of the cervical spine as described above without definite acute fracture or dislocation. ED physician has reviewed this radiology report. CT C-Spine CT Interpretation Completed By: Radiologist - 1. No calvarial fracture or acute intracranial hemorrhage. 2. Chronic findings of the cervical spine as described above without definite acute fracture or dislocation. ED physician has reviewed this radiology report. Adult Trauma Course/Dx - Course Assessment/Plan: This patient is a 31 year old F presenting to [facility] s/p fall that occurred at 1800. Patient states she fell down 10 stairs after slipping on black ice. She reports hitting her tailbone and injuring her head. The patient rates the pain 8/10 in severity. Symptoms aggravated by movement. Patient reports tailbone pain, lower back pain, ONOFRE, and neck pain. Patient denies LOC, dizziness, light headedness, and rib pain. CT C-Spine reveals, per radiologist , 1. No calvarial fracture or acute intracranial hemorrhage. 2. Chronic findings of the cervical spine as described above without definite acute. fracture or dislocation. Brain CT reveals, per radiologist, 1. No calvarial fracture or acute intracranial hemorrhage. 2. Chronic findings of the cervical spine as described above without definite acute. fracture or dislocation. Lumbar spine Xray reveals, per radiologist, No evidence of fracture or subluxation. Test results with no significant abnormalities. In the ED course the patient was given toradol and norco. Patient will be discharged with prescription for tramadol and follow up from Dr. Escamilla. The patient is agreeable with this plan. - Diagnoses Provider Diagnoses: cervical spine strain, Closed head injury, Contusion of lower back Discharge - Discharge Plan Condition: Good Disposition: HOME Prescriptions: traMADol TAB* [Ultram*] 25 mg PO Q6HR PRN #8 tab MDD 4 PRN Reason: Pain Scale 6-10 Patient Education Materials: Tramadol (By mouth) Referrals: Lester Escamilla MD [Primary Care Provider] - 3 Days Additional Instructions: RETURN TO THE EMERGENCY DEPARTMENT FOR CHANGING OR WORSENING SYMPTOMS. The documentation as recorded by the Charu fiore Gabriel accurately reflects the service I personally performed and the decisions made by , Clement Chisholm MD.
== END 2017-03-29 00:35 | disposition home or self-care (01) ==
LOC: ED 17:36
DX: S09.90XA Unspecified injury of head, initial encounter (principal); S16.1XXA Strain of muscle, fascia and tendon at neck level, initial encounter; S30.0XXA Contusion of lower back and pelvis, initial encounter; W00.1XXA Fall from stairs and steps due to ice and snow, initial encounter
CPT/HCPCS: 70450; 72110; 72125; 96372; 99282; J1885

== ENCOUNTER 2017-06-13 23:37 | Emergency (ER) | payer OTHER ==
[2017-06-13] MEDS ORDERED: diPHENhydraMINE IV* 50 MG/ML 1 ml VIAL (BENADRYL) IV ONE (23:48)
[2017-06-13] MEDS ORDERED: Albuterol/Ipratropium NEB.SOL* Albuterol 2.5 MG/Ipratropium 0.5 MG 3 ML INH ONE (23:54)
--- NOTE | 2017-06-13 23:59 | ED ---
HPI Cardiac - HPI Summary HPI Summary: Patient here with acute onset chest pain and shortness of breath while smoke a cigarette earlier tonight. She reports she's had this symptom in the past and it feels like bronchitis. Pain is worse w/ deep breath. She denies fever, chills, headache, nasal congestion, sore throat, ear pain or pressure, difficulty breathing, abdominal pain, nausea, vomiting, diarrhea, rash, recent illness/trauma/travel. She denies use of oral control or other hormones and no calf pain or tenderness. No previous history of pneumonia, PE or other clotting issues. She is not tried anything prior to coming in [facility] for her symptoms and reports this started 30 minutes ago. Sick contacts - everyone at home has had "illness". - History of Current Complaint Chief Complaint: EDShortnessOfBreath Stated Complaint: DIFFICULTY BREATHING Time Seen by Provider: 06/13/17 23:47 Hx Obtained From: Patient Hx Last Menstrual Period: 12/11/16 Pain Intensity: 9 - Allergy/Home Medications Allergies/Adverse Reactions: Allergies Allergy/AdvReac Type Severity Reaction Status Date / Time amoxicillin Allergy Hives Verified 06/13/17 23:44 PMH/Surg Hx/FS Hx/Imm Hx Previously Healthy: Yes Endocrine/Hematology History: Denies: Hx Anticoagulant Therapy, Hx Blood Disorders, Hx Blood Transfusions, Hx Diabetes, Hx Thyroid Disease, Hx Anemia, Hx Unexplained Bleeding, Hx Coagulopothy Cardiovascular History: Denies: Hx Aneurysm, Hx Angina, Hx Congenital Heart Disease, Hx Coronary Artery Disease, Hx Deep Vein Thrombosis, Hx Embolism, Hx Hypercholesterolemia, Hx Hypertension, Hx Myocardial Infarction, Hx Pacemaker/ICD Respiratory History: Reports: Other Respiratory Problems/Disorders - Bronchitis last spring - took 2 weeks to resolve w/ inhaler, anbx, steroid Denies: Hx Asthma, Hx Chronic Obstructive Pulmonary Disease (COPD) GI History: Denies: Hx Gastroesophageal Reflux Disease, Hx Ulcer History: Reports: Hx Kidney Stones Sensory History: Reports: Hx Contacts or Glasses Denies: Hx Hearing Aid Opthamlomology History: Reports: Hx Contacts or Glasses Neurological History: Reports: Hx Migraine Psychiatric History: Reports: Hx Anxiety, Hx Depression Denies: Hx Panic Disorder - Surgical History Surgery Procedure, Year, and Place: 2 c-sections Hx Anesthesia Reactions: No Infectious Disease History: No Infectious Disease History: Denies: Hx Clostridium Difficile, Hx Hepatitis, Hx Human Immunodeficiency Virus (HIV), Hx of Known/Suspected MRSA, Hx Shingles, History Other Infectious Disease, Traveled Outside the [place] in Last 30 Days - Family History Known Family History: Positive: Cardiac Disease, Hypertension, Diabetes, Other - father from [place], Mother from [place] s/p trauma Negative: Respiratory Disease - Social History Lives: With Family Alcohol Use: None Alcohol Amount: denies Hx Substance Use: No Substance Use Type: Reports: None Substance Use Comment - Amount & Last Used: recovering alcohol abuse disorder Hx Tobacco Use: Yes Smoking Status (MU): Current Every Day Smoker Type: Cigarettes Amount Used/How Often: 1 PACK Q1 WEEKS Review of Systems Constitutional: Negative Negative: Fever, Chills, Fatigue Eyes: Negative ENT: Negative Positive: Chest Pain. Negative: Palpitations Positive: Cough. Negative: Shortness Of Breath Gastrointestinal: Negative Negative: Abdominal Pain, Vomiting, Diarrhea, Nausea Positive: no symptoms reported Musculoskeletal: Negative Skin: Negative Neurological: Negative Positive: Anxious - but does not feel anxiety is causing her sx All Other Systems Reviewed And Are Negative: Yes Physical Exam Triage Information Reviewed: Yes Vital Signs On Initial Exam: Initial Vitals Temp Pulse Resp BP Pulse Ox 98.1 F 71 20 129/56 97 06/13/17 23:40 06/13/17 23:40 06/13/17 23:40 06/13/17 23:40 06/13/17 23:40 Vital Signs Reviewed: Yes Appearance: Positive: Well-Appearing, Pain Distress - mild, anxious, Obese Skin: Positive: Warm, Skin Color Reflects Adequate Perfusion, Dry Head/Face: Positive: Normal Head/Face Inspection Eyes: Positive: Normal, EOMI, COLETTE, Conjunctiva Clear. Negative: Conjunctiva Inflammed, Discharge ENT: Positive: Hearing grossly normal, Pharyngeal erythema - cobblestoning w/ mild edema, Nasal congestion - Lt > Rt - mucosa w/ erythema, tachy nasal d/c, TMs normal, Uvula midline. Negative: Tonsillar swelling, Tonsillar exudate, Trismus, Muffled voice, Hoarse voice, Sinus tenderness Dental: Positive: Gross Decay/Caries @ Neck: Positive: Supple, Nontender, No Lymphadenopathy Respiratory/Lung Sounds: Positive: Clear to Auscultation, Breath Sounds Present , Other - pt refrains from deep breathes as she reports this causes pain. Negative: Rales, Rhonchi, Wheezes Cardiovascular: Positive: Normal, RRR, S1, S2. Negative: Murmur, Rub, Leg Edema Left, Leg Edema Right - (-) Beth's B/L Abdomen Description: Positive: Nontender, No Organomegaly, Soft Bowel Sounds: Positive: Present Musculoskeletal: Positive: Normal, Strength/ROM Intact Neurological: Positive: Normal, Sensory/Motor Intact, Alert, Oriented to Person Place, Time, CN Intact II-III Psychiatric: Positive: Anxious Diagnostics - Vital Signs Vital Signs Temp Pulse Resp BP Pulse Ox 06/13/17 23:40 98.1 F 71 20 129/56 97 - Laboratory Result Diagrams: 06/14/17 00:35 06/14/17 00:35 Lab Statement: Any lab studies that have been ordered have been reviewed, and results considered in the medical decision making process. Re-Evaluation - Re-Evaluation First Eval Change: Unchanged - s/p duoneb however pt appears to be able to take a somewhat deeper breath - CTA B/L. Disposition - Course Course Of Treatment: Patient here with abrupt onset chest pain while trying to smoke a cigarette earlier this evening. Reports this was a sharp tightness and feels like bronchitis she's had in the past. Denies any change in her daily cough she is a smoker. Denies fever, chills, nausea, vomiting, diarrhea, abdominal pain, headache or sore throat, nasal congestion or ear pain. She has no previous cardiac history nor clotting issues and denies recent trauma, use of hormones, prolonged travel. A DuoNeb was initially implemented and patient reported no change in symptoms with this. Her chest was clear to auscultation before and after however she seemed to take deeper breaths after the DuoNeb treatment. Further testing for chest pain was ordered at this time and found to be negative for PE, [place], anemia, infection. Patient has been comfortably resting on stretcher watching TV since she's been here. Although we cannot pinpoint the definitive cause of her symptoms tonight, suspect this is something to do with pulmonary inflammation as she admits her house is quite dry and she does not have unification, again she smokes and again this feels like bronchitis she's had in the past. She would like to try one-time Toradol and prednisone treatment while here tonight. If this helps she may continue with ibuprofen at home. Supportive care also provided him discharge paperwork as well as danger signs and symptoms of when to return to the emergency department. Patient agrees plan. - Diagnoses Provider Diagnoses: Acute chest wall pain Discharge - Discharge Plan Condition: Stable Disposition: HOME Patient Education Materials: Chest Pain (ED) Forms: *Work Release Referrals: Lester Escamilla MD [Primary Care Provider] - Additional Instructions: The definitive cause of your chest pain was not identified tonight however it is suspected you're having some inflammation causing the symptoms. Your provided with a dose of Toradol (a strong anti-inflammatory/pain reliever) and prednisone (another anti-inflammatory medication). It is encouraged that you reduce/eliminate smoking, implement humidification in your living quarters and avoid any irritation such as air freshener's, perfumes, colognes, candles, incense, cleaning supplies, etc. You may try the following as well: Perform nasal wash/netti pot 2 x day with 8 ounces of warm water + 1/4 teaspoon of salt or saline nasal spray as needed Perform throat gargles with warm salt water as needed Drink 60+ ounces of water daily Sleep 8+ hours per night Avoid Dairy and sugar Drink hot herbal/decaf tea with lemon & honey Drink chicken broth (preferably organic, free range chicken) Use a humidifier in your house, but especially near bed at night. You may also keep home temperature at 68F or less. Warm compress on your chest Try a facial steam (boil water in pot or in hot shower) with or without eucalyptus essential oil or Brenton's vapor rub for decongestion. If symptoms persist, follow-up with PCP. If symptoms worsen and/or you develop difficulty breathing, difficulty swallowing, facial swelling, fever greater than 103 despite trying ibuprofen and acetaminophen, numbness, tingling, weakness, dizziness or syncope, return to the emergency department.
[2017-06-14 00:54] LABS: ABS Basophils 0 10^3/ul (0-0.2); ABS Eosinophils 0.1 10^3/ul (0-0.6); ABS Lymphocytes 2.2 10^3/ul (1.0-4.8); ABS Monocytes 0.4 10^3/ul (0-0.8); ABS Neutrophils 4.4 10^3/ul (1.5-7.7); ABS Nucleated RBC 0 10^3/ul; Eosinophil % 1.9 % (0-6); Hematocrit 43 % (35-47); Hemoglobin 14.8 g/dl (12.0-16.0); Lymphocyte % 30.5 % (25-47); Mean Corpuscular HGB Conc 35 g/dl (31-36); Mean Corpuscular Hemoglobin 29 pg (27-31); Mean Corpuscular Volume 85 fL (80-97); Mean Platelet Volume 8 um3 (7.4-10.4); Nucleated Red Blood Cells % 0.1; Platelet Count 179 10^3/ul (150-450); Red Blood Count 5.02 10^6/ul (4.0-5.4); Red Cell Distribution Width 14 % (10.5-15); White Blood Count 7.1 10^3/ul (3.5-10.8)
[2017-06-14 01:10] LABS: EGFR Non-African American 119.7 (>60)
[2017-06-14] MEDS ORDERED: Ketorolac INJ* 30 MG/ML 1 ML VIAL IV PUSH ONE (01:32)
[2017-06-14] MEDS ORDERED: predniSONE TAB* 20 MG PO ONE (01:40)
[2017-06-14] MEDS ORDERED: Ketorolac INJ* 60 MG/2 ML VIAL IM ONE (01:40)
[2017-06-14] MEDS ORDERED: Ketorolac INJ* 60 MG/2 ML VIAL ONE (01:42)
[2017-06-14 01:56] VITALS: BP 132/77
--- NOTE | 2017-06-14 07:58 | RAD ---
INDICATION: Chest pain. COMPARISON: Comparison is made with a prior study from January 13, 2017. TECHNIQUE: Dual-energy PA and lateral views of the chest were obtained. FINDINGS: The heart is within normal limits in size. Mediastinal and hilar contours appear within normal limits. The lungs are clear. No pleural effusion is present. IMPRESSION: NO EVIDENCE FOR ACTIVE CARDIOPULMONARY DISEASE.
== END 2017-06-14 01:55 | disposition home or self-care (01) ==
LOC: ED 23:37
DX: R07.89 Other chest pain (principal); R05 Cough; F17.210 Nicotine dependence, cigarettes, uncomplicated
CPT/HCPCS: 36415; 71046; 80053; 83605; 83735; 84443; 84484; 84702; 85025; 85379; 93005; 94640; 96372; 96374; 96375; 99283; A9270-GY; J1885; J7512

== ENCOUNTER 2017-07-18 09:05 | Emergency (ER) | payer OTHER ==
[2017-07-18] MEDS ORDERED: oxyCODONE/Acetamin 5/325 MG* TAB PO ONE (09:25)
[2017-07-18] MEDS ORDERED: NS 0.9% 1000 ML* 2,000 ML IV ONE (09:25)
[2017-07-18 10:29] LABS: ABS Basophils 0 10^3/ul (0-0.2); ABS Eosinophils 0 10^3/ul (0-0.6); ABS Lymphocytes 1.2 10^3/ul (1.0-4.8); ABS Monocytes 0.8 10^3/ul (0-0.8); ABS Neutrophils 8.9 10^3/ul (1.5-7.7); ABS Nucleated RBC 0 10^3/ul; Eosinophil % 0.3 % (0-6); Hematocrit 40 % (35-47); Hemoglobin 13.6 g/dl (12.0-16.0); Lymphocyte % 10.7 % (25-47); Mean Corpuscular HGB Conc 34 g/dl (31-36); Mean Corpuscular Hemoglobin 29 pg (27-31); Mean Corpuscular Volume 86 fL (80-97); Mean Platelet Volume 8.5 um3 (7.4-10.4); Nucleated Red Blood Cells % 0; Platelet Count 156 10^3/ul (150-450); Red Blood Count 4.69 10^6/ul (4.0-5.4); Red Cell Distribution Width 13 % (10.5-15)
--- NOTE | 2017-07-18 10:30 | RAD ---
Indication: Headache, head injury. CT of the brain was performed without IV contrast. Ventricular structures are midline. No midline shift is noted. The extra-axial spaces are unremarkable. There is no evidence of intracranial mass or hemorrhage. No other high or low density lesions are identified. Mastoid air cells are well aerated. Mucosal thickening of the right maxillary sinus is noted. IMPRESSION: No intracranial mass or hemorrhage is noted. No calvarial fracture is noted.
--- NOTE | 2017-07-18 10:35 | RAD ---
Indication: Headaches, neck injury. CT of the cervical spine was obtained in the axial plane. Sagittal and coronal reconstructed images were obtained. The skull base demonstrates no fracture. Mastoid air cells are well aerated. The C1 ring is intact. There is prior spina bifida of the posterior elements of C1. No acute injury is noted. There is failure of segmentation of C2, C3 and C4. No evidence of fracture is noted. No fracture is identified. At C4-C5 spondylitic ridge flattens the thecal sac. No foraminal stenosis is noted. At C5-C6 spondylitic ridge flattens the thecal sac. No central or foraminal stenosis is noted. At C6-C7 and C7-T1 no disc protrusion is noted. The lung apices are unremarkable. No fracture is identified. IMPRESSION: No fracture of the cervical spine is noted. 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 Degenerative disc disease at C5-C6 is noted. Degenerative disc disease at C4-C5 is noted.
[2017-07-18 10:39] LABS: INR 1.11 (0.77-1.02)
--- NOTE | 2017-07-18 10:40 | RAD ---
Indication: Flank pain. CT of the abdomen and pelvis was performed without oral or IV contrast administration. Coronal and sagittal reconstructed images were obtained. The lung bases demonstrate no pleural fluid, nodules or masses. Heart is of normal size without evidence of pericardial effusion. The liver is normal in size. No focal lesions or intrahepatic ductal dilatation is noted. The gallbladder demonstrates no gallstones, pericholecystic fluid or wall thickening. The spleen measures up to 16 cm and is enlarged. The pancreas demonstrates no mass or pancreatic duct dilatation. No adrenal lesions are noted. No hydronephrosis of either kidney is noted. There is perinephric infiltration of fat adjacent to the lower pole of the right kidney. I cannot totally exclude a small perinephric hematoma. This is not easily characterize due to lack of IV contrast. There is a calculus measuring 2 to 3 mm in the lower pole of the right kidney additional calculus is noted in the lower pole of the left kidney. No retroperitoneal lymphadenopathy is noted. The common duct is not dilated. No dilated loops of bowel are noted. CT of the pelvis demonstrates no dilated loops of bowel. No pelvic adenopathy is noted. The uterus is grossly unremarkable. Bilateral ovarian cysts are noted measuring up to 4.4 cm on the right 2.3 cm left. There is a small amount of free fluid in the cul-de-sac. Etiology of this is unclear. Urinary bladder is otherwise unremarkable. No hernias are identified. The visualized bony structures demonstrates vertebral bodies to be normal in height with no compression. No evidence of transverse process fractures are noted especially in the right lower lumbar spine. IMPRESSION: There is perinephric infiltration of fat and periapical nephric edema adjacent to the lower pole of the right kidney. A small perinephric hematoma is not excluded as this cannot be fully characterized without IV contrast. Calcifications in the lower pole of both kidneys. A small amount of free fluid is noted in the cul-de-sac.
[2017-07-18 10:47] LABS: EGFR Non-African American 96.4 (>60)
--- NOTE | 2017-07-18 11:14 | RAD ---
Indication: Right posterior rib pain. 3 views of the right posterior ribs as well as dual energy PA views of the chest are reviewed. No definite rib fracture is identified. No pneumothorax is noted. Lung jara are clear. IMPRESSION: No fracture of the right ribs is noted.
[2017-07-18] MEDS ORDERED: NS 0.9% 1000 ML* 1,000 ML IV ONE (12:35)
--- NOTE | 2017-07-18 14:05 | RAD ---
Indication: Right flank pain. Real-time sonography of the kidneys was performed. There is no hydronephrosis of the right kidney. A small amount of fluid is noted adjacent to the lower pole of the right kidney measuring 2.4 x 3.6 x 1.8 cm. IMPRESSION: A small amount of complex fluid is noted adjacent to the lower pole of the right kidney measuring 2.4 x 3.6 x 1.8 cm.
[2017-07-18 14:16] VITALS: BP 124/79
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
== END 2017-07-18 14:31 | disposition home or self-care (01) ==
LOC: ED 09:05
DX: S09.90XA Unspecified injury of head, initial encounter (principal); R10.9 Unspecified abdominal pain; R55 Syncope and collapse; F17.210 Nicotine dependence, cigarettes, uncomplicated; W19.XXXA Unspecified fall, initial encounter; Y92.9 Unspecified place or not applicable; N28.89 Other specified disorders of kidney and ureter
CPT/HCPCS: 36415; 70450; 72125; 74176; 76705; 80053; 82550; 82553; 83605; 83690; 83735; 84443; 84484; 84702; 85025; 85610; 85730; 86140; 93005; 96360; 99284; A9270-GY

== ENCOUNTER → 2017-10-04 16:29 | Emergency (ER) | payer OTHER ==
[~2017-10-04 16:29] MED LIST: Azithromycin TAB* 250 MG PO ONE; Levonorgestrel 1.5 MG TAB PO ONE; Lidocaine 1%* 5 ML VIAL ONE; Polymyx/Trimethoprim OPTH* 10 ML BTL RIGHT EYE SCH; cefTRIAXone VIAL(*) 250 MG VIAL IM ONE; metroNIDAZOLE TAB* 250 MG PO ONE
[2017-10-04 21:50] VITALS: BP 124/78
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
== END | disposition home or self-care (01) ==
LOC: ED 16:29
DX: Z04.41 Encounter for examination and observation following alleged adult rape (principal); F17.210 Nicotine dependence, cigarettes, uncomplicated
CPT/HCPCS: 36415; 84702; 86703; 86803; 87340; 87480; 87491; 87510; 87591; 87660; 96372; 99284; A9270-GY; J0696

== ENCOUNTER 2017-12-23 14:40 | Emergency (ER) | payer OTHER ==
[2017-12-23 14:51] VITALS: BP 117/69
--- NOTE | 2017-12-23 15:37 | UC ---
Headache HPI - HPI Summary HPI Summary: 32 y/o female presents to the urgent care c/o migraine ONOFRE radiating to the neck for the past 4 days. ONOFRE has worsen, specially when she is in the computer or reading. Pain is 9/10 and is all around her head. She has been taking Ibuprofen PO 400mg on and off to alleviate symptoms w/o any improvement. Las dose taking last night. She has Hx of Migraine ONOFRE and usually become severe if she doesn't take medication at the beginning of symptoms . She has Mild photophobia. Pt denies N/V, dizziness, SOB, chest pain, abdominal pain, neck stiffness. She was prescribed reading glasses, but usually don't use them. - History Of Current Complaint Chief Complaint: UCHeadache Stated Complaint: HEADACHE Time Seen by Provider: 12/23/17 15:15 Hx Obtained From: Patient Hx Last Menstrual Period: [id number] ?: No Onset/Duration: Gradual Onset, Lasting Days - 4 days, Still Present Initially Headache Was: Mild Currently Pain Is: Current Pain Scale(0-10)=, Moderate Pain Intensity: 9 Pain Scale Used: 0-10 Numeric Timing: Constant, Days - 4 days Character: Dull, Migraine Location of Headache: Diffuse Aggravating Factor(s): Bright Lights, Other - reading Allevating Factor(s): Rest Associated Signs And Symptoms: Negative: Dizziness, Seizure, Nausea, Vomiting, Sinus Pressure, Neck Pain, Neck Stiffness, Decreased LOC, Visual Changes Related History: Similar Episode/DX As: - Migraine ONOFRE - Risk Factors SAH Risk Factors: Negative Meningitis Risk Factors: Negative SDH Risk Factors: Negative Temporal Arteritis Risk Factors: Negative - Allergies/Home Medications Allergies/Adverse Reactions: Allergies Allergy/AdvReac Type Severity Reaction Status Date / Time amoxicillin Allergy Hives Verified 12/23/17 14:52 PMH/Surg Hx/FS Hx/Imm Hx Previously Healthy: Yes Psychological History: Anxiety, Depression Other History Of: Negative For: Anticoagulant Therapy - Surgical History Surgical History: Yes Surgery Procedure, Year, and Place: 2 c-sections - Family History Known Family History: Positive: Cardiac Disease, Hypertension, Diabetes, Other - father from [place], Mother from [place] s/p trauma Negative: Respiratory Disease - Social History Occupation: Employed Full-time Lives: With Family Alcohol Use: None Alcohol Amount: denies Substance Use Type: None Substance Use Comment - Amount & Last Used: recovering alcohol abuse disorder Smoking Status (MU): Light Every Day Tobacco Smoker Type: Cigarettes Amount Used/How Often: 1 PACK Q1 WEEKS Household Exposure Type: Cigarettes - Immunization History Most Recent Influenza Vaccination: 2012 Most Recent Tetanus Shot: >10 yrs Most Recent Pneumonia Vaccination: no Hx Tetanus, Diphtheria Vaccination: No - unsure of last Vaccination Up to Date: No Review of Systems Constitutional: Negative Skin: Negative Eyes: Photophobia ENT: Negative Respiratory: Negative Cardiovascular: Negative Gastrointestinal: Negative Genitourinary: Negative Motor: Negative Neurovascular: Negative Musculoskeletal: Negative Neurological: Headache Psychological: Negative Is Patient Immunocompromised?: No All Other Systems Reviewed And Are Negative: Yes Physical Exam - Summary Physical Exam Summary: Vital Signs Reviewed: Yes General: well developed, well nourished obese female sitting in the examining w /o any apparent distress. Eyes: Positive: Conjunctiva Clear - -Eyes: sclera and conjunctiva clear, corneas grossly clear, PEERLA, EOMI, no nystagmus, no ptosis,no photophobia, normal fundoscopic exam, normal visual jara,, -Head:scalp atraumatic, NT, no trigger points ENT: Positive: Normal ENT inspection, Hearing grossly normal, Pharynx normal, TMs normal - B/L external ear canals clear, Other: - No TMJ tenderness. Negative : Nasal congestion, Nasal drainage, Tonsillar swelling, Tonsillar exudate Dental Exam: Normal Neck: Positive: Supple, Nontender, No Lymphadenopathy Respiratory: Positive: Chest non-tender, Lungs clear, Normal breath sounds, No respiratory distress Cardiovascular: Positive: RRR, No Murmur, Pulses Normal, Brisk Capillary Refill Abdomen Description: Positive: Nontender, No Organomegaly, Soft. Negative: CVA Tenderness (R), CVA Tenderness (L) Bowel Sounds: Positive: Present Musculoskeletal: Positive: Strength Intact, ROM Intact, No Edema Neurological: Positive: Alert - A&OX3, CNII-XII WNL, speech, memory and expression WNL,, Muscle Tone Normal - Muscle strength 5/5 in both upper and lower extremities. Normal gait, negative Romberg test and good coordination finger to nose, heel to georges WNL, sensation intact. Reflexes WNL Psychological Exam: Normal Skin: Positive: warm and dry , no rashes or petechiae observed Triage Information Reviewed: Yes Vital Signs: Initial Vital Signs Temp 97.4 F 12/23/17 14:47 Pulse 76 12/23/17 14:47 Resp 16 12/23/17 14:47 BP 117/69 12/23/17 14:47 Pulse Ox 100 12/23/17 14:47 Headache Course/Dx - Course Course Of Treatment: 32 y/o female presents to the urgent care c/o migraine ONOFRE radiating to the neck for the past 4 days. ONOFRE has worsen, specially when she is in the computer or reading. Pain is 9/10 and is all around her head. She has been taking Ibuprofen PO 400mg on and off to alleviate symptoms w/o any improvement. Las dose taking last night. She has Hx of Migraine ONOFRE and usually become severe if she doesn't take medication at the beginning of symptoms . She has Mild photophobia. Pt denies N/V, dizziness, SOB, chest pain, abdominal pain, neck stiffness. She was prescribed reading glasses, but usually don't use them.Hx obtained. PE: WNL. Pt given toradol IM inj by nurse to alleviate symptoms. Pt tolerated well medication and after 20min ONOFRE decrease. Pt Rx Naproxen PO and Bendaryl PO to alleviate symptoms. Strongly advised to f/u w/ her PCP for further management and Tx of her headaches. Also to f/y w/ iphtalmologist DR Corrales since I think the cause of her ONOFRE is Pt is strainning her vision when she is in computer, cell phone and reading. Pt advised to go immediately to the ER if symptoms worsen for further management. Pt understood and agreed and left the clinic hemodynamically stable, A&OX3 - Differential Dx/Diagnosis Differential Diagnosis/HQI/PQRI: Migraine, Sinus Headache, Tension Headache, Viral Syndrome Provider Diagnoses: 1- Headache Discharge - Sign-Out/Discharge Documenting (check all that apply): Patient Departure - D/c home All imaging exams completed and their final reports reviewed: No Studies - Discharge Plan Condition: Stable Disposition: HOME Prescriptions: diPHENhydraMINE PO* [Benadryl PO 25 MG TAB*] 25 mg PO Q6H PRN #30 tab PRN Reason: Headache Naproxen TAB* [Naprosyn 250 mg TAB*] 250 mg PO Q8H PRN #30 tab PRN Reason: Headache Patient Education Materials: Migraine Headache (ED) Referrals: Wu Cain MD [Primary Care Provider] - 3 Days Thomas Corrales MD [Medical Doctor] - 3 Days Additional Instructions: 1-Take Naproxen PO after meals to alleviate Headache. Take Benadryl PO as directed as soon as you get home to alleviate symptoms 2-If symptoms do not improve or worsen please f/u with your PCP in 3 days or return to the urgent care for further evaluation and treatment. 3- Please f/u w/ your supervisor cereal or DR Corrales for a new Rx for your reading glasses. this may be a cause of your ONOFRE. Do not strain your vision or use computer for long period of time. 3-If you develops severe headache with dizziness, visual disturbances or any neurological deficit go immediately to the ER for further treatment. - Billing Disposition and Condition Condition: STABLE Disposition: Home - Attestation Statements Provider Attestation: Per institutional requirements, I have reviewed the chart, however, I was not consulted specifically or made aware of this patient by the midlevel provider. I did not personally evaluate, interact with , or disposition this patient.
[2017-12-23] MEDS ORDERED: Ketorolac INJ* 30 MG/ML 1 ML VIAL IM ONE (15:49)
== END 2017-12-23 16:20 | disposition home or self-care (01) ==
LOC: UCEAST 14:40
DX: R51 Headache (principal); Z88.0 Allergy status to penicillin; F17.210 Nicotine dependence, cigarettes, uncomplicated
CPT/HCPCS: 99212; G0463; J1885

== ENCOUNTER 2018-10-20 23:58 | Emergency (ER) | payer OTHER ==
[2018-10-21] MEDS ORDERED: Ketorolac INJ* 30 MG/ML 1 ML VIAL IV PUSH ONE (00:58)
[2018-10-21 01:18] LABS: ABS Basophils 0.1 10^3/ul (0-0.2); ABS Eosinophils 0.2 10^3/ul (0-0.6); ABS Lymphocytes 2.5 10^3/ul (1.0-4.8); ABS Monocytes 0.4 10^3/ul (0-0.8); ABS Neutrophils 4.1 10^3/ul (1.5-7.7); Hematocrit 40 % (35-47); Hemoglobin 13.7 g/dL (12.0-16.0); Lymphocyte % 33.9 %; Mean Corpuscular HGB Conc 35 g/dL (31-36); Mean Corpuscular Hemoglobin 30 pg (27-31); Mean Corpuscular Volume 86 fL (80-97); Mean Platelet Volume 8.4 fL (7.4-10.4); Platelet Count 180 10^3/uL (150-450); Red Blood Count 4.62 10^6 /uL (3.70-4.87); Red Cell Distribution Width 13 % (10-15); White Blood Count 7.3 10^3/uL (3.5-10.8)
[2018-10-21 01:39] LABS: Albumin 4.1 g/dL (3.2-5.2); Albumin/Globulin Ratio 1.5 (1-3); BUN/Creatinine Ratio 27.9 (8-20); Calcium 9.4 mg/dL (8.6-10.3); EGFR African American 135.9 (>60); EGFR Non-African American 112.3 (>60); Globulin 2.7 g/dL (2-4); Potassium 3.4 mmol/L (3.5-5.0); Total Bilirubin 0.7 mg/dL (0.2-1.0); Total Protein 6.8 g/dL (6.4-8.9)
--- NOTE | 2018-10-21 02:17 | ED ---
HPI Chest Pain - HPI Summary HPI Summary: 32-year-old female presents with complaints of sudden onset midsternal chest pain at around 11:00 this morning while she was trying to pull her out of the street after he had a seizure. She states the pain is constant and is sharp and stabbing in nature. Pain worsens with deep breath and movement. Denies fever, chills, cough, weakness, dizziness, diaphoresis, palpitations, shortness of breath, nausea, or vomiting. - History of Current Complaint Chief Complaint: EDChestPainROMI Time Seen by Provider: 10/21/18 00:42 Hx Obtained From: Patient Hx Last Menstrual Period: [id number] Pain Intensity: 10 - Allergy/Home Medications Allergies/Adverse Reactions: Allergies Allergy/AdvReac Type Severity Reaction Status Date / Time amoxicillin Allergy Hives Verified 04/23/18 13:38 PMH/Surg Hx/FS Hx/Imm Hx Previously Healthy: Yes Endocrine/Hematology History: Denies: Hx Anticoagulant Therapy, Hx Blood Disorders, Hx Blood Transfusions, Hx Diabetes, Hx Thyroid Disease, Hx Anemia, Hx Unexplained Bleeding Cardiovascular History: Denies: Hx Aneurysm, Hx Angina, Hx Congenital Heart Disease, Hx Coronary Artery Disease, Hx Deep Vein Thrombosis, Hx Embolism, Hx Hypercholesterolemia, Hx Hypertension, Hx Myocardial Infarction, Hx Pacemaker/ICD Respiratory History: Denies: Hx Asthma, Hx Chronic Obstructive Pulmonary Disease (COPD) GI History: Denies: Hx Gastroesophageal Reflux Disease, Hx Ulcer History: Reports: Hx Kidney Stones Sensory History: Reports: Hx Contacts or Glasses Opthamlomology History: Reports: Hx Contacts or Glasses Neurological History: Reports: Hx Migraine Psychiatric History: Reports: Hx Anxiety, Hx Depression Denies: Hx Panic Disorder - Surgical History Surgical History: Yes Surgery Procedure, Year, and Place: 2 c-sections Hx Anesthesia Reactions: No Infectious Disease History: No Infectious Disease History: Denies: Hx Clostridium Difficile, Hx Hepatitis, Hx Human Immunodeficiency Virus (HIV), Hx of Known/Suspected MRSA, Hx Shingles, History Other Infectious Disease, Traveled Outside the [place] in Last 30 Days - Family History Known Family History: Positive: Cardiac Disease, Hypertension, Diabetes, Other - father from [place], Mother from [place] s/p trauma Negative: Respiratory Disease - Social History Occupation: Employed Full-time Lives: With Family Alcohol Use: None Alcohol Amount: recovery Hx Substance Use: No Substance Use Type: Reports: None Substance Use Comment - Amount & Last Used: recovery Hx Tobacco Use: Yes Smoking Status (MU): Light Every Day Tobacco Smoker Type: Cigarettes Amount Used/How Often: 1 PACK Q1 WEEKS Review of Systems Negative: Fever, Chills Positive: Chest Pain. Negative: Palpitations Negative: Shortness Of Breath, Cough Negative: Abdominal Pain, Vomiting, Nausea Genitourinary: Negative Musculoskeletal: Other - See HPI Skin: Negative Neurological: Negative All Other Systems Reviewed And Are Negative: Yes Physical Exam - Summary Physical Exam Summary: GENERAL APPEARANCE: Alert and cooperative obese female who appears uncomfortable but in no acute distress. EYES: Conjunctiva clear. No drainage. EARS: External auditory canals and tympanic membranes clear, hearing grossly intact. NOSE: No nasal discharge. THROAT: Pharynx normal, No tonsilar inflammation, swelling, exudate, or lesions. Uvula midline. Oral cavity normal. Teeth and gingiva in good general condition. NECK: Neck supple, non-tender without lymphadenopathy. CARDIAC: Normal S1 and S2. No S3, S4 or murmurs. Rhythm is regular. There is no peripheral edema, cyanosis or pallor. Extremities are warm and well perfused. Capillary refill is less than 2 seconds. Peripheral pulses intact. LUNGS: Anterior chest wall pain over the sternum with palpation. No crepitus. Clear to auscultation without rales, rhonchi, wheezing or diminished breath sounds. ABDOMEN: Positive bowel sounds. Soft, nondistended, nontender. No guarding or rebound. No masses or hepatosplenomegally. MUSKULOSKELETAL: ROM intact to all extremities. No joint erythema or tenderness. Normal muscular development. Normal gait. SKIN: Skin normal color, texture and turgor with no lesions or eruptions. Triage Information Reviewed: Yes Vital Signs On Initial Exam: Initial Vitals Temp Pulse Resp BP Pulse Ox 98.2 F 69 20 135/79 99 10/21/18 00:07 10/21/18 00:07 10/21/18 00:07 10/21/18 00:07 10/21/18 00:07 Vital Signs Reviewed: Yes Diagnostics - Vital Signs Vital Signs Temp Pulse Resp BP Pulse Ox 10/21/18 00:07 98.2 F 69 20 135/79 99 - Laboratory Lab Results: Lab Results 10/21/18 10/21/18 Range/Units 01:09 01:09 WBC 7.3 (3.5-10.8) 10^3/uL RBC 4.62 (3.70-4.87) 10^6 /uL Hgb 13.7 (12.0-16.0) g/dL Hct 40 (35-47) % MCV 86 (80-97) fL MCH 30 (27-31) pg MCHC 35 (31-36) g/dL RDW 13 (10-15) % Plt Count 180 (150-450) 10^3/uL MPV 8.4 (7.4-10.4) fL Neut % (Auto) 56.4 % Lymph % (Auto) 33.9 % Dickson % (Auto) 5.9 % Eos % (Auto) 3.0 % Baso % (Auto) 0.8 % Absolute Neuts (auto) 4.1 (1.5-7.7) 10^3/ul Absolute Lymphs (auto) 2.5 (1.0-4.8) 10^3/ul Absolute Monos (auto) 0.4 (0-0.8) 10^3/ul Absolute Eos (auto) 0.2 (0-0.6) 10^3/ul Absolute Basos (auto) 0.1 (0-0.2) 10^3/ul Absolute Nucleated RBC 0.0 10^3/ul Nucleated RBC % 0.0 Sodium 139 (135-145) mmol/L Potassium 3.4 L (3.5-5.0) mmol/L Chloride 110 (101-111) mmol/L Carbon Dioxide 23 (22-32) mmol/L Anion Gap 6 (2-11) mmol/L BUN 17 (6-24) mg/dL Creatinine 0.61 (0.51-0.95) mg/dL Est GFR ( Amer) 135.9 (>60) Est GFR (Non-Af Amer) 112.3 (>60) BUN/Creatinine Ratio 27.9 H (8-20) Glucose 97 (70-100) mg/dL Calcium 9.4 (8.6-10.3) mg/dL Total Bilirubin 0.70 (0.2-1.0) mg/dL AST 22 (13-39) U/L ALT 17 (7-52) U/L Alkaline Phosphatase 53 (34-104) U/L Troponin I 0.00 (<0.04) ng/mL Total Protein 6.8 (6.4-8.9) g/dL Albumin 4.1 (3.2-5.2) g/dL Globulin 2.7 (2-4) g/dL Albumin/Globulin Ratio 1.5 (1-3) Result Diagrams: 10/21/18 01:09 10/21/18 01:09 Lab Statement: Any lab studies that have been ordered have been reviewed, and results considered in the medical decision making process. - Radiology No standard instances Radiology Interpretation Completed By: ED Physician - CXR negative for acute cardiopulmoary pathology - EKG No standard instances Cardiac Rate: NL - Rate 61 EKG Rhythm: Sinus Rhythm ST Segment: Normal Ectopy: None Chest Pain Course/Dx - Course Course Of Treatment: 32-year-old female presents with complaints of sudden onset midsternal chest pain at around 11:00 this morning while she was trying to pull her out of the street after he had a seizure. She states the pain is constant and is sharp and stabbing in nature. Pain worsens with deep breath and movement. Denies fever, chills, cough, weakness, dizziness, diaphoresis, palpitations, shortness of breath, nausea, or vomiting. Afebrile. Vital signs stable. Twelve-lead EKG showed a normal sinus rhythm at a rate of 61 without ectopy, ST elevation, or T-wave changes. Patient had reproducible anterior chest wall tenderness and otherwise unremarkable exam. She was given ketorolac 30 mg IV for the pain with improvement. Portal chest x- ray showed no acute cardiopulmonary pathology. CBC and CMP were essentially normal except for a slightly low potassium of 3.4. Troponin was 0.00. I discussed these findings with the patient. With the reproducible chest pain and a heart score of 2 which places her at low risk, I feel that her pain is likely musculoskeletal in nature and I'm recommending conservative treatment for chest wall pain including naproxen 500 mg twice a day 5 days then as needed as well as heat therapy. She is to follow-up with her primary care provider in 3 days for recheck of her symptoms. Anticipatory guidance and warning symptoms were reviewed with the patient. Verbalizes understanding and agrees with plan of care. - Diagnoses Provider Diagnoses: Acute chest wall pain Discharge - Sign-Out/Discharge Documenting (check all that apply): Patient Departure Patient Received Moderate/Deep Sedation with Procedure: No - Discharge Plan Condition: Stable Disposition: HOME Prescriptions: Naproxen [Naproxen 500 mg tab] 500 mg PO Q12HR #30 tablet Patient Education Materials: Chest Wall Pain (ED) Forms: *Work Release Referrals: Wu Cain MD [Primary Care Provider] - 3 Days Additional Instructions: Your EKG, lab work, and chest x-ray performed in the ER tonight were all normal. I suspect that your pain is musculoskeletal in origin. You received an anti-inflammatory pain medication called ketorolac at 1:00 AM in the emergency room for your pain. Do not take any other anti-inflammatory medication such as ibuprofen (Advil, Motrin), naproxen (Aleve), or aspirin for at least 8 hours after receiving this medication. Start naproxen 500 mg 1 tablet every 12 hours with food for the next 5 days starting tomorrow. After 5 days you may then take every 12 hours as needed. You can try using a heating pad for 15-20 minutes at least 4 times a day to the affected area to help with the pain and relax the muscles. Follow-up with your primary care provider in 3 days especially if symptoms are not improving. Return to the emergency room if you have worsening of your chest pain, you become weak or dizzy, have shortness of breath, develop nausea or vomiting, or have any worsening of symptoms. - Billing Disposition and Condition Condition: STABLE Disposition: Home - Attestation Statements Provider Attestation: pt seen by midlevel provider independently, based on their assessment, it was not necessary to present the case to me but I was available for consultation. I did not form a physician-patient relationship with the patient. The chart however, has been reviewed. am signing this note strictly in an administrative capacity.
[2018-10-21 02:31] VITALS: BP 114/76
== END 2018-10-21 02:29 | disposition home or self-care (01) ==
LOC: ED 23:58
DX: R07.89 Other chest pain (principal); F17.210 Nicotine dependence, cigarettes, uncomplicated; Z88.1 Allergy status to other antibiotic agents
CPT/HCPCS: 36415; 71045; 80053; 84484; 85025; 93005; 96374; 99283; J1885

== ENCOUNTER 2018-11-25 00:02 | Emergency (ER) | payer OTHER ==
[2018-11-25] MEDS ORDERED: Acetaminophen TAB* 325 MG PO ONE (00:31)
[2018-11-25] MEDS ORDERED: Metoclopramide IV* 5 MG/ML 2 ML VIAL IV ONE (00:31)
[2018-11-25] MEDS ORDERED: NS 0.9% 1000 ML** 1,000 ML IV ONE (00:31)
[2018-11-25] MEDS ORDERED: diPHENhydraMINE IV* 50 MG/ML 1 ml VIAL (BENADRYL) IV ONE (00:31)
--- NOTE | 2018-11-25 00:32 | ED ---
Headache - HPI Summary HPI Summary: Patient complains of migraine headache to right side temporal. States history of migraines, but fairly in location and intensity. Patient states this headache started around 10 PM tonight. Denies trauma, fever, neck stiffness, cough, sore throat, CP, SOB, N/V/D, abdominal pain, change in urine, change in BM. Denies EtOH use for one year. History of depression and migraines. Patient took ibuprofen at 10:30 with no relief. Positive smoker. - History Of Current Complaint Chief Complaint: EDHeadache Stated Complaint: MIGRAINE PER EMS Time Seen by Provider: 11/25/18 00:21 Hx Obtained From: Patient Hx Last Menstrual Period: [id number] Onset/Duration: Gradual Onset, Started hours ago Initially Headache Was: Severe Currently Pain Is: Severe Timing: Constant Character: Sharp, Dull, Throbbing Location of Headache: Temporal Aggravating Factor: Bright Lights Allevating Factors: Nothing Associated Signs And Symptoms: Negative - Allergies/Home Medications Allergies/Adverse Reactions: Allergies Allergy/AdvReac Type Severity Reaction Status Date / Time amoxicillin Allergy Hives Verified 04/23/18 13:38 PMH/Surg Hx/FS Hx/Imm Hx Endocrine/Hematology History: Denies: Hx Anticoagulant Therapy, Hx Blood Disorders, Hx Blood Transfusions, Hx Diabetes, Hx Thyroid Disease, Hx Anemia, Hx Unexplained Bleeding Cardiovascular History: Denies: Hx Aneurysm, Hx Angina, Hx Congenital Heart Disease, Hx Coronary Artery Disease, Hx Deep Vein Thrombosis, Hx Embolism, Hx Hypercholesterolemia, Hx Hypertension, Hx Myocardial Infarction, Hx Pacemaker/ICD Respiratory History: Reports: Other Respiratory Problems/Disorders - Bronchitis last spring - took 2 weeks to resolve w/ inhaler, anbx, steroid Denies: Hx Asthma, Hx Chronic Obstructive Pulmonary Disease (COPD) GI History: Denies: Hx Gastroesophageal Reflux Disease, Hx Ulcer History: Reports: Hx Kidney Stones Sensory History: Reports: Hx Contacts or Glasses Opthamlomology History: Reports: Hx Contacts or Glasses Neurological History: Reports: Hx Migraine Psychiatric History: Reports: Hx Anxiety, Hx Depression Denies: Hx Panic Disorder - Surgical History Surgery Procedure, Year, and Place: 2 c-sections Hx Anesthesia Reactions: No - Immunization History Immunizations Up to Date: Yes Infectious Disease History: No Infectious Disease History: Denies: Hx Clostridium Difficile, Hx Hepatitis, Hx Human Immunodeficiency Virus (HIV), Hx of Known/Suspected MRSA, Hx Shingles, History Other Infectious Disease, Traveled Outside the [place] in Last 30 Days - Family History Known Family History: Positive: Cardiac Disease, Hypertension, Diabetes, Other - father from [place], Mother from [place] s/p trauma Negative: Respiratory Disease - Social History Alcohol Use: None Alcohol Amount: recovery Hx Substance Use: No Substance Use Type: Reports: None Substance Use Comment - Amount & Last Used: recovery Hx Tobacco Use: Yes Smoking Status (MU): Light Every Day Tobacco Smoker Type: Cigarettes Amount Used/How Often: 1 PACK Q1 WEEKS Review of Systems Constitutional: Negative Positive: Photophobia ENT: Negative Cardiovascular: Negative Respiratory: Negative Gastrointestinal: Negative Genitourinary: Negative Musculoskeletal: Negative Skin: Negative Positive: Headache Psychological: Normal All Other Systems Reviewed And Are Negative: Yes Physical Exam - Summary Physical Exam Summary: Neuro exam normal. Neck supple. Triage Information Reviewed: Yes Vital Signs On Initial Exam: Initial Vitals Temp Pulse Resp BP Pulse Ox 97.9 F 79 16 145/84 97 11/25/18 00:05 11/25/18 00:05 11/25/18 00:05 11/25/18 00:05 11/25/18 00:05 Vital Signs Reviewed: Yes Appearance: Positive: Well-Appearing Skin: Positive: Warm Head/Face: Positive: Normal Head/Face Inspection Eyes: Positive: Normal ENT: Positive: Normal ENT inspection Neck: Positive: Supple Respiratory/Lung Sounds: Positive: Clear to Auscultation Cardiovascular: Positive: Normal Abdomen Description: Positive: Nontender Musculoskeletal: Positive: Normal Neurological: Positive: Normal Psychiatric: Positive: Normal AVPU Assessment: Alert - [place] Coma Scale Best Eye Response: 4 - Spontaneous Best Motor Response: 6 - Obeys Commands Best Verbal Response: 5 - Oriented Coma Scale Total: 15 Diagnostics - Vital Signs Vital Signs Temp Pulse Resp BP Pulse Ox 11/25/18 00:05 97.9 F 79 16 145/84 97 - Laboratory Lab Statement: Any lab studies that have been ordered have been reviewed, and results considered in the medical decision making process. Headache Course/Dx - Course Course Of Treatment: Patient complains of migraine headache to right side temporal. States history of migraines, but fairly in location and intensity. Patient states this headache started around 10 PM tonight. Denies trauma, fever , neck stiffness, cough, sore throat, CP, SOB, N/V/D, abdominal pain, change in urine, change in BM. Denies EtOH use for one year. History of depression and migraines. Patient took ibuprofen at 10:30 with no relief. Positive smoker. Vital signs within normal limits. Symptoms significantly improved with migraine cocktail. - Diagnoses Provider Diagnoses: Migraine Discharge ED - Sign-Out/Discharge Documenting (check all that apply): Patient Departure Patient Received Moderate/Deep Sedation with Procedure: No - Discharge Plan Condition: Stable Disposition: HOME Patient Education Materials: Migraine Headache (ED) Referrals: Wu Cain MD [Primary Care Provider] - Additional Instructions: Follow-up with primary care. Return to the ED for any new or worsening symptoms. - Billing Disposition and Condition Condition: STABLE Disposition: Home
[2018-11-25 03:04] VITALS: BP 119/68
== END 2018-11-25 03:03 | disposition home or self-care (01) ==
LOC: ED 00:02
DX: G43.909 Migraine, unspecified, not intractable, without status migrainosus (principal); F41.9 Anxiety disorder, unspecified; F32.9 Major depressive disorder, single episode, unspecified; F17.210 Nicotine dependence, cigarettes, uncomplicated; Z79.899 Other long term (current) drug therapy; Z88.1 Allergy status to other antibiotic agents
CPT/HCPCS: 96361; 96374; 96375; 99283; A9270-GY; J1200; J2765

== ENCOUNTER 2019-01-30 17:38 | Emergency (ER) | payer SELFPAY ==
--- NOTE | 2019-01-30 18:40 | ED ---
Lower Extremity - HPI Summary HPI Summary: Patient complains of sudden bluish color to bilateral thighs after coming in from outside starting at 5:30 PM. Resolved prior to arrival in exam room. Denies any other symptoms, pain or injury. States no prior history of same. - History of Current Complaint Chief Complaint: EDExtremityLower Stated Complaint: LEG DISCOLORATION PER EMS Time Seen by Provider: 01/30/19 18:37 Hx Obtained From: Patient Hx Last Menstrual Period: [id number] Mechanism Of Injury: Unknown Severity Currently: None Pain Intensity: 0 Pain Scale Used: 0-10 Numeric Timing: Lasting Minutes Location: Is Discrete @ Associated Signs And Symptoms: Positive: Other Able to Bear Weight: Yes - Allergies/Home Medications Allergies/Adverse Reactions: Allergies Allergy/AdvReac Type Severity Reaction Status Date / Time amoxicillin Allergy Hives Verified 01/30/19 17:55 PMH/Surg Hx/FS Hx/Imm Hx Endocrine/Hematology History: Denies: Hx Anticoagulant Therapy, Hx Blood Disorders, Hx Blood Transfusions, Hx Diabetes, Hx Thyroid Disease, Hx Anemia, Hx Unexplained Bleeding Cardiovascular History: Denies: Hx Aneurysm, Hx Angina, Hx Congenital Heart Disease, Hx Coronary Artery Disease, Hx Deep Vein Thrombosis, Hx Embolism, Hx Hypercholesterolemia, Hx Hypertension, Hx Myocardial Infarction, Hx Pacemaker/ICD Respiratory History: Reports: Other Respiratory Problems/Disorders - Bronchitis last spring - took 2 weeks to resolve w/ inhaler, anbx, steroid Denies: Hx Asthma, Hx Chronic Obstructive Pulmonary Disease (COPD) GI History: Denies: Hx Gastroesophageal Reflux Disease, Hx Ulcer History: Reports: Hx Kidney Stones Sensory History: Reports: Hx Contacts or Glasses Opthamlomology History: Reports: Hx Contacts or Glasses Neurological History: Reports: Hx Migraine Psychiatric History: Reports: Hx Anxiety, Hx Depression Denies: Hx Panic Disorder - Surgical History Surgery Procedure, Year, and Place: 2 c-sections Hx Anesthesia Reactions: No Infectious Disease History: No Infectious Disease History: Denies: Hx Clostridium Difficile, Hx Hepatitis, Hx Human Immunodeficiency Virus (HIV), Hx of Known/Suspected MRSA, Hx Shingles, History Other Infectious Disease, Traveled Outside the [place] in Last 30 Days - Family History Known Family History: Positive: Cardiac Disease, Hypertension, Diabetes, Other - father from [place], Mother from [place] s/p trauma Negative: Respiratory Disease - Social History Alcohol Use: None Alcohol Amount: recovery Hx Substance Use: No Substance Use Type: Reports: None Substance Use Comment - Amount & Last Used: recovery Hx Tobacco Use: Yes Smoking Status (MU): Light Every Day Tobacco Smoker Type: Cigarettes Amount Used/How Often: 1 PACK Q1 WEEKS Review of Systems Constitutional: Negative Eyes: Negative ENT: Negative Cardiovascular: Negative Respiratory: Negative Gastrointestinal: Negative Genitourinary: Negative Musculoskeletal: Negative Skin: Other Neurological: Negative Psychological: Normal All Other Systems Reviewed And Are Negative: Yes Physical Exam - Summary Physical Exam Summary: No unusual color pain, ecchymosis, erythema, deformity, swelling noted to bilateral lower extremities. No pain with palpation. Full range of motion of all joints of bilateral lower extremities. Bilateral calves soft nontender. Triage Information Reviewed: Yes Vital Signs On Initial Exam: Initial Vitals Temp Pulse Resp BP Pulse Ox 98.0 F 85 16 126/88 97 01/30/19 17:52 01/30/19 17:52 01/30/19 17:52 01/30/19 17:52 01/30/19 17:52 Vital Signs Reviewed: Yes Appearance: Positive: Well-Appearing Skin: Positive: Warm Eyes: Positive: Normal Neck: Positive: Supple Respiratory/Lung Sounds: Positive: Clear to Auscultation Cardiovascular: Positive: Normal Abdomen Description: Positive: Nontender Musculoskeletal: Positive: Normal Neurological: Positive: Normal Psychiatric: Positive: Normal AVPU Assessment: Alert - [place] Coma Scale Best Eye Response: 4 - Spontaneous Best Motor Response: 6 - Obeys Commands Best Verbal Response: 5 - Oriented Coma Scale Total: 15 Procedures - Sedation Patient Received Moderate/Deep Sedation with Procedure: No Diagnostics - Vital Signs Vital Signs Temp Pulse Resp BP Pulse Ox 01/30/19 17:52 98.0 F 85 16 126/88 97 - Laboratory Lab Statement: Any lab studies that have been ordered have been reviewed, and results considered in the medical decision making process. Lower Extremity Course/Dx - Course Course Of Treatment: Patient complains of sudden bluish color to bilateral thighs after coming in from outside starting at 5:30 PM. Resolved prior to arrival in exam room. Denies any other symptoms, pain or injury. States no prior history of same. Vital signs within normal limits. Symptoms resolved prior to exam. - Diagnoses Provider Diagnoses: Bluish skin Discharge ED - Sign-Out/Discharge Documenting (check all that apply): Patient Departure - Discharge Plan Condition: Stable Disposition: HOME Referrals: Wu Cain MD [Primary Care Provider] - Additional Instructions: Monitor your legs for any further discoloration. Return to the ED for any new or worsening symptoms. - Billing Disposition and Condition Condition: STABLE Disposition: Home
[2019-01-30 19:52] VITALS: BP 118/81
== END 2019-01-30 19:42 | disposition home or self-care (01) ==
LOC: ED 17:38
DX: R23.0 Cyanosis (principal); Z88.0 Allergy status to penicillin; F17.210 Nicotine dependence, cigarettes, uncomplicated
CPT/HCPCS: 99282

== ENCOUNTER 2019-03-07 16:43 | Emergency (ER) | payer SELFPAY ==
[2019-03-07 17:49] LABS: ABS Eosinophils 0.2 10^3/ul (0-0.6); ABS Lymphocytes 1.8 10^3/ul (1.0-4.8); ABS Monocytes 0.4 10^3/ul (0-0.8); Eosinophil % 3.3 %; Hematocrit 42 % (35-47); Hemoglobin 14.4 g/dL (12.0-16.0); Lymphocyte % 27.7 %; Mean Corpuscular HGB Conc 34 g/dL (31-36); Mean Corpuscular Hemoglobin 29 pg (27-31); Mean Corpuscular Volume 87 fL (80-97); Mean Platelet Volume 8.7 fL (7.4-10.4); Nucleated Red Blood Cells % 0.1; Platelet Count 195 10^3/uL (150-450); Red Cell Distribution Width 13 % (10-15); White Blood Count 6.5 10^3/uL (3.5-10.8)
[2019-03-07 18:12] LABS: HCG Pregnancy < 0.60 mIU/mL
[2019-03-07 18:16] LABS: Albumin 4.1 g/dL (3.2-5.2); Anion Gap 4 mmol/L (2-11); CO2 Carbon Dioxide 26 mmol/L (22-32); Calcium 9.1 mg/dL (8.6-10.3); Chloride 109 mmol/L (101-111); Potassium 3.8 mmol/L (3.5-5.0); Sodium 139 mmol/L (135-145)
[2019-03-07 18:22] LABS: ALT 14 U/L (7-52); AST 10 U/L (13-39); Albumin/Globulin Ratio 1.3 (1-3); Alkaline Phosphatase 56 U/L (34-104); Blood Urea Nitrogen 13 mg/dL (6-24); C Reactive Protein 2.34 mg/L (<8.01); EGFR African American 125.5 (>60); EGFR Non-African American 103.7 (>60); Globulin 3.1 g/dL (2-4); Glucose 79 mg/dL (70-100); Total Protein 7.2 g/dL (6.4-8.9)
[2019-03-07] MEDS ORDERED: NS 0.9% 1000 ML** 1,000 ML IV ONE (19:31)
[2019-03-07] MEDS ORDERED: Ketorolac INJ* 30 MG/ML 1 ML VIAL IV PUSH ONE (19:31)
[2019-03-07] MEDS ORDERED: Ondansetron INJ* 2 MG/ML VIAL IV ONE (19:32)
--- NOTE | 2019-03-07 19:33 | ED ---
GI/ HPI - HPI Summary HPI Summary: 33-year-old female presents with flank pain today. She states that it radiates to the left side of her abdomen. She denies any nausea or vomiting. She has had diarrhea. No abnormal vaginal discharge. She states she does have a history of kidney stones. She took some ibuprofen prior to arrival with minimal improvement. She's had 2 previous C-sections. She has a history of depression. She denies any chest pain or breath. She denies any hematuria. No urinary symptoms. - History of Current Complaint Chief Complaint: EDFlankPain Time Seen by Provider: 03/07/19 19:22 Stated Complaint: FLANK PAIN PER PT Hx Last Menstrual Period: [id number] Pain Intensity: 10 - Allergy/Home Medications Allergies/Adverse Reactions: Allergies Allergy/AdvReac Type Severity Reaction Status Date / Time amoxicillin Allergy Hives Verified 03/07/19 17:01 PMH/Surg Hx/FS Hx/Imm Hx Endocrine/Hematology History: Denies: Hx Anticoagulant Therapy, Hx Blood Disorders, Hx Blood Transfusions, Hx Diabetes, Hx Thyroid Disease, Hx Anemia, Hx Unexplained Bleeding Cardiovascular History: Denies: Hx Aneurysm, Hx Angina, Hx Congenital Heart Disease, Hx Coronary Artery Disease, Hx Deep Vein Thrombosis, Hx Embolism, Hx Hypercholesterolemia, Hx Hypertension, Hx Myocardial Infarction, Hx Pacemaker/ICD Respiratory History: Reports: Other Respiratory Problems/Disorders - Bronchitis last spring - took 2 weeks to resolve w/ inhaler, anbx, steroid Denies: Hx Asthma, Hx Chronic Obstructive Pulmonary Disease (COPD) GI History: Denies: Hx Gastroesophageal Reflux Disease, Hx Ulcer History: Reports: Hx Kidney Stones Sensory History: Reports: Hx Contacts or Glasses Opthamlomology History: Reports: Hx Contacts or Glasses Neurological History: Reports: Hx Migraine Psychiatric History: Reports: Hx Anxiety, Hx Depression Denies: Hx Panic Disorder - Surgical History Surgery Procedure, Year, and Place: 2 c-sections Hx Anesthesia Reactions: No Infectious Disease History: No Infectious Disease History: Denies: Hx Clostridium Difficile, Hx Hepatitis, Hx Human Immunodeficiency Virus (HIV), Hx of Known/Suspected MRSA, Hx Shingles, History Other Infectious Disease, Traveled Outside the [place] in Last 30 Days - Family History Known Family History: Positive: Cardiac Disease, Hypertension, Diabetes, Other - father from [place], Mother from [place] s/p trauma Negative: Respiratory Disease - Social History Alcohol Use: None Alcohol Amount: recovery Hx Substance Use: No Substance Use Type: Reports: None Substance Use Comment - Amount & Last Used: recovery Hx Tobacco Use: Yes Smoking Status (MU): Light Every Day Tobacco Smoker Type: Cigarettes Amount Used/How Often: 1 PACK Q1 WEEKS Review of Systems Negative: Fever Negative: Chest Pain Negative: Shortness Of Breath Positive: Abdominal Pain, Diarrhea. Negative: Vomiting, Nausea Positive: flank pain All Other Systems Reviewed And Are Negative: Yes Physical Exam Triage Information Reviewed: Yes Vital Signs On Initial Exam: Initial Vitals Temp Pulse Resp BP Pulse Ox 97.7 F 64 16 121/72 98 03/07/19 16:58 03/07/19 16:58 03/07/19 16:58 03/07/19 16:58 03/07/19 16:58 Vital Signs Reviewed: Yes Appearance: Positive: Well-Appearing Skin: Positive: Warm, Dry Head/Face: Positive: Normal Head/Face Inspection Eyes: Positive: Normal, Conjunctiva Clear ENT: Positive: Pharynx normal Respiratory/Lung Sounds: Positive: Clear to Auscultation, Breath Sounds Present Cardiovascular: Positive: Normal, RRR Abdomen Description: Positive: Soft, CVA Tenderness (L), Other: - tenderness left side abd Bowel Sounds: Positive: Present Musculoskeletal: Positive: Normal Neurological: Positive: Normal Psychiatric: Positive: Normal Procedures - Sedation Patient Received Moderate/Deep Sedation with Procedure: No Diagnostics - Vital Signs Vital Signs Temp Pulse Resp BP Pulse Ox 03/07/19 18:42 98 F 59 16 113/55 98 03/07/19 16:58 97.7 F 64 16 121/72 98 - Laboratory Lab Results: Lab Results 03/07/19 03/07/19 Range/Units 17:36 17:36 WBC 6.5 (3.5-10.8) 10^3/uL RBC 4.90 H (3.70-4.87) 10^6 /uL Hgb 14.4 (12.0-16.0) g/dL Hct 42 (35-47) % MCV 87 (80-97) fL MCH 29 (27-31) pg MCHC 34 (31-36) g/dL RDW 13 (10-15) % Plt Count 195 (150-450) 10^3/uL MPV 8.7 (7.4-10.4) fL Neut % (Auto) 61.9 % Lymph % (Auto) 27.7 % [place] % (Auto) 6.4 % Eos % (Auto) 3.3 % Baso % (Auto) 0.7 % Absolute Neuts (auto) 4.0 (1.5-7.7) 10^3/ul Absolute Lymphs (auto) 1.8 (1.0-4.8) 10^3/ul Absolute Monos (auto) 0.4 (0-0.8) 10^3/ul Absolute Eos (auto) 0.2 (0-0.6) 10^3/ul Absolute Basos (auto) 0.0 (0-0.2) 10^3/ul Absolute Nucleated RBC 0.0 10^3/ul Nucleated RBC % 0.1 Sodium 139 (135-145) mmol/L Potassium 3.8 (3.5-5.0) mmol/L Chloride 109 (101-111) mmol/L Carbon Dioxide 26 (22-32) mmol/L Anion Gap 4 (2-11) mmol/L BUN 13 (6-24) mg/dL Creatinine 0.65 (0.51-0.95) mg/dL Est GFR ( Amer) 125.5 (>60) Est GFR (Non-Af Amer) 103.7 (>60) BUN/Creatinine Ratio 20.0 (8-20) Glucose 79 (70-100) mg/dL Calcium 9.1 (8.6-10.3) mg/dL Total Bilirubin 0.60 (0.2-1.0) mg/dL AST 10 L (13-39) U/L ALT 14 (7-52) U/L Alkaline Phosphatase 56 (34-104) U/L C-Reactive Protein 2.34 (<8.01) mg/L Total Protein 7.2 (6.4-8.9) g/dL Albumin 4.1 (3.2-5.2) g/dL Globulin 3.1 (2-4) g/dL Albumin/Globulin Ratio 1.3 (1-3) Lipase 49 (11.0-82.0) U/L Beta HCG, Quant < 0.60 mIU/mL Result Diagrams: 03/07/19 17:36 03/07/19 17:36 Lab Statement: Any lab studies that have been ordered have been reviewed, and results considered in the medical decision making process. - CT abd CT Interpretation Completed By: Radiologist Summary of CT Findings: IMPRESSION: No CT findings to correlate with patient's symptomatology. Specifically no obstructing renal or ureteral calculi. Re-Evaluation - Re-Evaluation First Eval Comment: wants catether for urine but only female nurse Second Eval Re-Evaluation Time: 21:23 Comment: wants to be discharge without urine so can get bus GIGU Course/Dx - Course Course Of Treatment: 33-year-old female presents with flank pain today. She states that it radiates to the left side of her abdomen. She denies any nausea or vomiting. She has had diarrhea. No abnormal vaginal discharge. She states she does have a history of kidney stones. She took some ibuprofen prior to arrival with minimal improvement. She's had 2 previous C-sections. She has a history of depression. She denies any chest pain or breath. She denies any hematuria. No urinary symptoms. On exam tenderness and left flank and left sided abdomen. wbc normal. CRP normal. CT shows no acute findings. paitent unable to provide urine. told to follow up with primary. patient understand and agrees with plan. - Diagnoses Differential Diagnoses - Female: Pyelonephritis, Urinary Tract Infection, Ureteral Calculi Provider Diagnoses: Flank pain Discharge ED - Sign-Out/Discharge Documenting (check all that apply): Patient Departure - Discharge Plan Condition: Good Disposition: HOME Patient Education Materials: Flank Pain (ED) Referrals: Wu Cain MD [Primary Care Provider] - Additional Instructions: take tyenlol or ibuprofen for pain every 6 hours follow up with primary within 5 days Return to ED if develop any new or worsening symptoms - Billing Disposition and Condition Condition: GOOD Disposition: Home
[2019-03-07] MEDS ORDERED: Ketorolac INJ* 30 MG/ML 1 ML VIAL IM ONE (20:11)
[2019-03-07 21:31] VITALS: BP 132/88
== END 2019-03-07 21:09 | disposition home or self-care (01) ==
LOC: ED 16:43
DX: R10.32 Left lower quadrant pain (principal); Z88.0 Allergy status to penicillin; F41.9 Anxiety disorder, unspecified; F32.9 Major depressive disorder, single episode, unspecified; F17.210 Nicotine dependence, cigarettes, uncomplicated
CPT/HCPCS: 36415; 74176; 80053; 83690; 84702; 85025; 86140; 96372; 99283; J1885; J2405

== ENCOUNTER 2019-03-29 23:51 | Emergency (ER) | payer MEDICAID ==
[2019-03-30] MEDS ORDERED: Pantoprazole IV* 40 MG IV ONE (00:18)
--- NOTE | 2019-03-30 00:18 | ED ---
GI/ HPI - HPI Summary HPI Summary: 33 year old female presents with left upper quadrant pain for the past day. States that a week ago she fell on her left side. She states she did have rib and abdominal pain at that time but today the pain got worse. She states she woke up with the pain. She states it does not change with food. Has had a normal appetite. No nausea and vomiting. No diarrhea or constipation. She does have a bruise on her left upper quadrant. No previous abdominal surgeries. She has taken ibuprofen for pain without relief. She states movement makes the pain worse. - History of Current Complaint Chief Complaint: EDAbdPain Time Seen by Provider: 03/30/19 00:09 Stated Complaint: ABD PAIN PER EMS Hx Last Menstrual Period: [id number] Pain Intensity: 8 - Allergy/Home Medications Allergies/Adverse Reactions: Allergies Allergy/AdvReac Type Severity Reaction Status Date / Time amoxicillin Allergy Hives Verified 03/30/19 00:00 PMH/Surg Hx/FS Hx/Imm Hx Endocrine/Hematology History: Denies: Hx Anticoagulant Therapy, Hx Blood Disorders, Hx Blood Transfusions, Hx Diabetes, Hx Thyroid Disease, Hx Anemia, Hx Unexplained Bleeding Cardiovascular History: Denies: Hx Aneurysm, Hx Angina, Hx Congenital Heart Disease, Hx Coronary Artery Disease, Hx Deep Vein Thrombosis, Hx Embolism, Hx Hypercholesterolemia, Hx Hypertension, Hx Myocardial Infarction, Hx Pacemaker/ICD Respiratory History: Reports: Other Respiratory Problems/Disorders - Bronchitis last spring - took 2 weeks to resolve w/ inhaler, anbx, steroid Denies: Hx Asthma, Hx Chronic Obstructive Pulmonary Disease (COPD) GI History: Denies: Hx Gastroesophageal Reflux Disease, Hx Ulcer History: Reports: Hx Kidney Stones Sensory History: Reports: Hx Contacts or Glasses Opthamlomology History: Reports: Hx Contacts or Glasses Neurological History: Reports: Hx Migraine Psychiatric History: Reports: Hx Anxiety, Hx Depression Denies: Hx Panic Disorder - Surgical History Surgery Procedure, Year, and Place: 2 c-sections Hx Anesthesia Reactions: No Infectious Disease History: No Infectious Disease History: Denies: Hx Clostridium Difficile, Hx Hepatitis, Hx Human Immunodeficiency Virus (HIV), Hx of Known/Suspected MRSA, Hx Shingles, History Other Infectious Disease, Traveled Outside the [place] in Last 30 Days - Family History Known Family History: Positive: Cardiac Disease, Hypertension, Diabetes, Other - father from [place], Mother from [place] s/p trauma Negative: Respiratory Disease - Social History Alcohol Use: None Alcohol Amount: recovery Hx Substance Use: No Substance Use Type: Reports: None Substance Use Comment - Amount & Last Used: recovery Hx Tobacco Use: Yes Smoking Status (MU): Light Every Day Tobacco Smoker Type: Cigarettes Amount Used/How Often: 1 PACK Q1 WEEKS Review of Systems Negative: Fever Positive: Chest Pain Positive: Shortness Of Breath Positive: Abdominal Pain. Negative: Vomiting, Diarrhea, Nausea All Other Systems Reviewed And Are Negative: Yes Physical Exam Triage Information Reviewed: Yes Vital Signs On Initial Exam: Initial Vitals Temp Pulse Resp BP Pulse Ox 98.7 F 64 16 120/87 99 03/29/19 23:58 03/29/19 23:58 03/29/19 23:58 03/29/19 23:58 03/29/19 23:58 Vital Signs Reviewed: Yes Appearance: Positive: Well-Appearing Skin: Positive: Warm, Dry, Other - small area of ecchymosis to LUQ Head/Face: Positive: Normal Head/Face Inspection Eyes: Positive: Normal, Conjunctiva Clear ENT: Positive: Pharynx normal Respiratory/Lung Sounds: Positive: Clear to Auscultation, Breath Sounds Present , Other - tenderness left ribs Cardiovascular: Positive: Normal, RRR Abdomen Description: Positive: Soft, Other: - tenderness LUQ and LLQ Bowel Sounds: Positive: Present Musculoskeletal: Positive: Normal Neurological: Positive: Normal Psychiatric: Positive: Normal Procedures - Sedation Patient Received Moderate/Deep Sedation with Procedure: No Diagnostics - Vital Signs Vital Signs Temp Pulse Resp BP Pulse Ox 03/29/19 23:58 98.7 F 64 16 120/87 99 - Laboratory Result Diagrams: 03/30/19 00:41 03/30/19 00:41 Lab Statement: Any lab studies that have been ordered have been reviewed, and results considered in the medical decision making process. - EKG No standard instances Cardiac Rate: NL EKG Rhythm: Sinus Rhythm Summary of EKG Findings: sinus rhythm Re-Evaluation - Re-Evaluation First Eval Re-Evaluation Time: 01:55 Comment: currently sleeping GIGU Course/Dx - Course Course Of Treatment: 33 year old female presents with left upper quadrant pain for the past day. States that a week ago she fell on her left side. She states she did have rib and abdominal pain at that time but today the pain got worse. She states she woke up with the pain. She states it does not change with food. Has had a normal appetite. No nausea and vomiting. No diarrhea or constipation. She does have a bruise on her left upper quadrant. No previous abdominal surgeries. She has taken ibuprofen for pain without relief. She states movement makes the pain worse. On exam has tenderness lower left ribs left lower and left upper quadrant. wbc normal. troponin zero. d-dimer neg. bedside FAST neg. patient is very tender in LUQ and LLQ so will get CT. patient signed out to dr davenport pending CT. - Diagnoses Differential Diagnoses - Female: Gastritis, Gerd, Other - contusion, rib pain Provider Diagnoses: Chest wall pain, Abdominal pain Discharge ED - Sign-Out/Discharge Documenting (check all that apply): Sign-Out Patient Signing out patient TO: Dunia Davenport - Discharge Plan Referrals: Wu Cain MD [Primary Care Provider] -
[2019-03-30 00:50] LABS: ABS Eosinophils 0.3 10^3/ul (0-0.6); ABS Lymphocytes 2.5 10^3/ul (1.0-4.8); ABS Monocytes 0.5 10^3/ul (0-0.8); ABS Neutrophils 4.3 10^3/ul (1.5-7.7); Eosinophil % 3.4 %; Hematocrit 40 % (35-47); Hemoglobin 13.6 g/dL (12.0-16.0); Lymphocyte % 32.7 %; Mean Corpuscular HGB Conc 34 g/dL (31-36); Mean Corpuscular Hemoglobin 30 pg (27-31); Mean Corpuscular Volume 86 fL (80-97); Platelet Count 185 10^3/uL (150-450); Red Cell Distribution Width 13 % (10-15); White Blood Count 7.5 10^3/uL (3.5-10.8)
[2019-03-30 01:08] LABS: Albumin/Globulin Ratio 1.7 (1-3); BUN/Creatinine Ratio 29.3 (8-20); C Reactive Protein 1.3 mg/L (<8.01); Calcium 9.3 mg/dL (8.6-10.3); EGFR African American 143.1 (>60); EGFR Non-African American 118.3 (>60); Globulin 2.4 g/dL (2-4); Potassium 3.9 mmol/L (3.5-5.0); Total Bilirubin 0.4 mg/dL (0.2-1.0); Total Protein 6.4 g/dL (6.4-8.9)
[2019-03-30 01:14] LABS: HCG Pregnancy 0.73 mIU/mL
[2019-03-30] MEDS ORDERED: Ketorolac INJ* 30 MG/ML 1 ML VIAL IV PUSH ONE (01:24)
[2019-03-30] MEDS ORDERED: Iohexol 300* (CONTRAST) 10 ML SDV IV ONE (01:27)
--- NOTE | 2019-03-30 02:17 | ED ---
Progress - Progress Note Progress Note: Pt is a signout from [facility], pending CT a/p and rib XR. - Results/Orders Results/Orders: CT a/p shows: 1. There is a 2.4 cm right ovarian cyst. 2. No acute traumatic CT pathology of the abdomen or pelvis. ED physician has reviewed this report. Ribs w/ Chest XR: No visible acute fracture. ED physician has reviewed this report. Re-Evaluation - Re-Evaluation First Eval Re-Evaluation Time: 01:55 Course/Dx - Course Course Of Treatment: Pt is a signout from [facility]herty, pending CT a/p and rib XR. - Diagnoses Provider Diagnoses: Left-sided chest wall pain, Left sided abdominal pain Discharge ED - Sign-Out/Discharge Documenting (check all that apply): Patient Departure, Receiving Sign-Out Receiving patient FROM: Rupal Stuart - Discharge Plan Condition: Stable Disposition: HOME Patient Education Materials: Acute Abdominal Pain (ED) Referrals: Wu Cain MD [Primary Care Provider] - Additional Instructions: Please follow up with your primary care physician within three days. Please return to ED for any new or worsening symptoms. - Attestation Statements Document Initiated by Scribe: Yes Documenting Scribe: Francie Delacruz Provider For Whom Rad[facility] is Documenting (Include Credential): Dunia Davenport MD. Scribe Attestation: Francie Murcia, scribed for Dunia Davenport MD. on 03/30/19 at 0330. Status of Scribe Document: Ready
[2019-03-30 04:01] VITALS: BP 128/79
== END 2019-03-30 03:58 | disposition home or self-care (01) ==
LOC: ED 23:51
DX: R07.89 Other chest pain (principal); R10.9 Unspecified abdominal pain; F17.210 Nicotine dependence, cigarettes, uncomplicated; R06.02 Shortness of breath; Z88.0 Allergy status to penicillin
CPT/HCPCS: 36415; 74177; 80053; 84484; 84702; 85025; 85379; 86140; 93005; 99282; J1885; Q9967